=== PATIENT | female | born 1985 | race Two or more races ===

== ENCOUNTER 2016-10-04 13:18 | Emergency (ER) | payer OTHER ==
[~2016-10-04] VITALS: Ht 149.9 cm; Wt 59.0 kg
[~2016-10-04 13:18] MED LIST: FERR-26 PO; PROM25TA10 PO; SULF1TAB23 PO; SUMA50TA3 PO
[2016-10-04 13:32] VITALS: BP 151/91
[2016-10-04] MEDS ORDERED: METOCLOPRAMIDE HCL 10 MG/2 ML VIAL. IV ONE (13:45)
[2016-10-04] MEDS ORDERED: DIPHENHYDRAMINE 50 MG/ML VIAL IVP ONE (13:45)
[2016-10-04] MEDS ORDERED: IV NORMAL SALINE 500ML BAG 500 ML IV ONE (13:45)
--- NOTE | 2016-10-04 13:54 | PHYS DOC ---
Past Medical History Past Medical History: Migraines Additional Past Medical Histor: migraines Past Surgical History: Tubal ligation Alcohol Use: None Drug Use: None Adult General Chief Complaint Chief Complaint: HEADACHE HPI HPI 31-year-old female presenting the emergency department today with migraine similar to previous migraines. She complains of headache that is frontal nonradiating moderate and worse with lights and noise. She denies numbness weakness or tingling. She reports this is similar to previous headaches. Not thunderclap. Review of Systems Review of Systems Negative for fevers chills neck stiffness numbness weakness or tingling. All other review of systems is negative unless otherwise noted in history of present illness. Current Medications Current Medications Current Medications Medications (Trade) Dose Ordered Sig/Diomedes Start Time Stop Time Status Last Admin Dose Admin Diphenhydramine HCl 50 mg 50 mg 1X ONCE 10/04/16 13:45 10/04/16 13:46 DC Ketorolac Tromethamine (Toradol Im) 30 mg 1X ONCE 10/04/16 14:00 10/04/16 14:01 DC 10/04/16 13:56 30 MG Metoclopramide HCl (Reglan) 20 mg 1X ONCE 10/04/16 13:45 10/04/16 13:46 DC Sodium Chloride (Iv Sodium Chloride 0.9% 500ml Bag) 500 ml @ 500 mls/hr 1X ONCE 10/04/16 13:45 10/04/16 14:44 Allergies Allergies Allergies Coded Allergies Type Severity Reaction Last Updated Verified sulfamethoxazole Allergy Intermediate Rash 08/04/16 Yes trimethoprim Allergy Intermediate Rash 08/04/16 Yes Physical Exam Physical Exam Constitutional: Well developed, well nourished, no acute distress, non-toxic appearance. HENT: Normocephalic, atraumatic, bilateral external ears normal, oropharynx moist, no oral exudates, nose normal. [] Eyes: PERRLA, EOMI, conjunctiva normal, no discharge. Neck: Normal range of motion, no tenderness, supple, no stridor. [] Cardiovascular:Heart rate regular rhythm, no murmur [] Lungs & Thorax: Bilateral breath sounds clear to auscultation Abdomen: Bowel sounds normal, soft, no tenderness, no masses, no pulsatile masses. [] Skin: Warm, dry, no erythema, no rash. [] Back: No tenderness, no CVA tenderness. [] Extremities: No tenderness, no cyanosis, no clubbing, ROM intact, no edema. [] Neurologic: Mental status: Awake oriented and alert x3 Cranial nerves: Extraocular movements intact, eyebrows david bilaterally smile symmetric, uvula elevation, shoulder shrug intact, tongue protrusion normal DTRs: 2+ Sensation: equal and normal in all extremities Strength: 5/5 in upper and lower extremities bilaterally Psychologic: Affect normal, judgement normal, mood normal. [] Current Patient Data Vital Signs Vital Signs Date Time Temp Pulse Resp B/P Pulse Ox O2 Delivery O2 Flow Rate FiO2 10/04/16 13:32 97.8 100 16 151/91 100 97.8 Lab Values Laboratory Tests Test 10/04/16 13:40 Urine Test Negative (NEG) EKG EKG [] Radiology/Procedures Radiology/Procedures [] Course & Med Decision Making Course & Med Decision Making Pertinent Labs and Imaging studies reviewed. (See chart for details) [] 31-year-old female presenting the emergency department with headache similar to previous. Vital signs showed mild hypertension and mild tachycardia likely secondary to pain. Physical exam showed normal neurologic exam. The patient was treated for migraine headache which improved her symptoms. She was subsequently discharged home to follow up with PCP over the next 2-3 days. Dragon Disclaimer Dragon Disclaimer This electronic medical record was generated, in whole or in part, using a voice recognition dictation system. Departure Departure Impression: Primary Impression: Migraine Disposition: 01 HOME, SELF-CARE Condition: STABLE Referrals: TEJINDER ARAIZA MD (PCP) Patient Instructions: Migraine Headache Additional Instructions: Thank you for allowing us to participate in your care today. Followup with your primary care physician in 3 days if your symptoms do not improve. If you do not have a primary care provider you can ask for a list of our primary care providers. Return to the emergency department you have any new or concerning findings. This should be evaluated by the primary care physician and any necessary consulting services for continued management within a few days after discharge. Return to emergency room if you have any new or concerning symptoms including but not limited to fever, chills, nausea, vomiting, intractable pain, any new rashes, chest pain, shortness of air, uncontrolled bleeding, difficulty breathing, and/or vision loss. PINEDA CORTEZ MD Oct 04, 2016 13:54
[2016-10-04] MEDS ORDERED: KETOROLAC TROMETHAMINE 60 MG/2 ML SYRINGE. IM ONE (14:00)
[2016-10-04 14:06] LABS: NEG OBC UR NEG; POS OBC UR POS
== END 2016-10-04 14:25 | disposition home or self-care (01) ==
LOC: ER 13:18
DX: G43.909 Migraine, unspecified, not intractable, without status migrainosus (principal); Z88.1 Allergy status to other antibiotic agents
CPT/HCPCS: 81025; 96372; 99283; J1885

== ENCOUNTER 2018-01-04 17:34 | Emergency (ER) | payer OTHER | END 2018-01-04 18:02 | disposition home or self-care (01) | LOC: ER 17:34 | DX: L03.115 Cellulitis of right lower limb (principal); G43.909 Migraine, unspecified, not intractable, without status migrainosus; Z88.2 Allergy status to sulfonamides; Z88.1 Allergy status to other antibiotic agents | CPT/HCPCS: 99283 ==

== ENCOUNTER 2018-03-31 12:53 | Emergency (ER) | payer SELFPAY, OTHER | END 2018-03-31 14:02 | disposition home or self-care (01) | LOC: ER 12:53 | DX: S63.501A Unspecified sprain of right wrist, initial encounter (principal); G43.909 Migraine, unspecified, not intractable, without status migrainosus; Z98.51 Tubal ligation status; Z88.2 Allergy status to sulfonamides; Z88.5 Allergy status to narcotic agent; W18.30XA Fall on same level, unspecified, initial encounter; Y93.89 Activity, other specified; Y92.89 Other specified places as the place of occurrence of the external cause; Y99.8 Other external cause status | CPT/HCPCS: 29125; 73110; 73130; 99284 ==

== ENCOUNTER 2018-05-17 14:28 | Emergency (ER) | payer SELFPAY ==
[~2018-05-17] VITALS: Ht 149.9 cm; Wt 59.0 kg
[~2018-05-17 14:28] MED LIST changes: +CLIN300C8 PO; -FERR-26 PO; +FERR325T14 PO; +NAPR500T8 PO
[2018-05-17 15:44] VITALS: BP 124/68
[2018-05-17] MEDS ORDERED: AZIT250T PO (16:17)
[2018-05-17] MEDS ORDERED: METR500T PO (16:17)
--- NOTE | 2018-05-17 16:18 | PHYS DOC ---
Past Medical History Past Medical History: Migraines, Other Additional Past Medical Histor: migraines Past Surgical History: Tubal ligation Alcohol Use: None Drug Use: None Adult General Chief Complaint Chief Complaint: PELVIC PAIN HPI HPI Patient is a 32 year old female who presents with pelvic discharge and odor. The patient states that she has had a tubal ligation. Her last period was April 27. She states that she started to develop this odor and some brown discharge a few days ago. It has worsened. She has some mild pelvic pain associated with it. She denies any possibility of a sexually transmitted disease. She denies fever, nausea or vomiting. She denies diarrhea. Review of Systems Review of Systems Constitutional: Denies fever or chills [] Eyes: Denies change in visual acuity, redness, or eye pain [] HENT: Denies nasal congestion or sore throat [] Respiratory: Denies cough or shortness of breath [] Cardiovascular: No additional information not addressed in HPI [] GI: Denies abdominal pain, nausea, vomiting, bloody stools or diarrhea [] : See history of present illness Musculoskeletal: Denies back pain or joint pain [] Integument: Denies rash or skin lesions [] Neurologic: Denies headache, focal weakness or sensory changes [] Endocrine: Denies polyuria or polydipsia [] All other systems were reviewed and found to be within normal limits, except as documented in this note. Allergies Allergies Allergies Coded Allergies Type Severity Reaction Last Updated Verified sulfamethoxazole Allergy Intermediate Rash 08/04/16 Yes trimethoprim Allergy Intermediate Rash 08/04/16 Yes Physical Exam Physical Exam Constitutional: Well developed, well nourished, no acute distress, non-toxic appearance. [] Cardiovascular:Heart rate regular rhythm, no murmur [] Lungs & Thorax: Bilateral breath sounds clear to auscultation [] Abdomen: Bowel sounds normal, soft, no tenderness, no masses, no pulsatile masses. [] Skin: Warm, dry, no erythema, no rash. [] Back: No tenderness, no CVA tenderness. [] Extremities: No tenderness, no cyanosis, no clubbing, ROM intact, no edema. [] Neurologic: Alert and oriented X 3, normal motor function, normal sensory function, no focal deficits noted. [] Psychologic: Affect normal, judgement normal, mood normal. Pelvic Exam: Ug Designer present Abdomen: Nontender External Genitalia: Normal Skin Speculum: Normal vaginal mucosa, retained tampon noted to the vaginal canal and removed with ring forceps, brown discharge noted, foul odor noted Bimanual: No adnexal masses or tenderness, No CMT [] Current Patient Data Vital Signs Vital Signs Date Time Temp Pulse Resp B/P (MAP) Pulse Ox O2 Delivery O2 Flow Rate FiO2 05/17/18 15:44 98.4 71 16 124/68 (86) 100 Room Air 98.4 EKG EKG [] Radiology/Procedures Radiology/Procedures [] Course & Med Decision Making Course & Med Decision Making Pertinent Labs and Imaging studies reviewed. (See chart for details) []Due to the patient's pelvic tenderness she is being placed on Zithromax and Flagyl. Cultures were sent to the lab but she was notified that we will only call with positive results. She is to follow-up with gynecology if not improving or return to the emergency department if worsening. She is in agreement with this plan. Dragon Disclaimer Dragon Disclaimer This electronic medical record was generated, in whole or in part, using a voice recognition dictation system. Departure Departure Impression: Primary Impression: Retained tampon Disposition: HOME, SELF-CARE Condition: STABLE Referrals: TEJINDER ARAIZA MD (PCP) Additional Instructions: Take the medication as prescribed. Your body will continue to flush out the fluids and odor. Do not use douche or insert anything into the vaginal canal. Follow up with your primary care provider or your frame polisher for recheck in 3 days. If worsening return to the emergency department. Scripts Azithromycin (ZITHROMAX) 250 Mg Tablet 1 PKG PO UD, #1 PKG Prov: OCTAVIO PARKS TAR POT WORKER 05/17/18 Metronidazole (FLAGYL) 500 Mg Tablet 1 TAB PO BID, #14 TAB Prov: OCTAVIO PARKS APRN 05/17/18 OCTAVIO PARKS APRN May 17, 2018 16:18
[2018-05-18 15:33] LABS: GC PROBE Negative (Negative)
== END 2018-05-17 16:39 | disposition home or self-care (01) ==
LOC: ER 14:28
DX: T19.2XXA Foreign body in vulva and vagina, initial encounter (principal); X58.XXXA Exposure to other specified factors, initial encounter; Y93.89 Activity, other specified; Y92.89 Other specified places as the place of occurrence of the external cause; Y99.8 Other external cause status; G43.909 Migraine, unspecified, not intractable, without status migrainosus; Z98.51 Tubal ligation status; Z88.1 Allergy status to other antibiotic agents; Z88.2 Allergy status to sulfonamides
CPT/HCPCS: 87491; 87591; 99284; Q0111

== ENCOUNTER 2018-10-25 16:35 | Emergency (ER) | payer SELFPAY ==
[~2018-10-25] VITALS: Ht 149.9 cm; Wt 59.0 kg
[~2018-10-25 16:35] MED LIST changes: +AZIT250T PO; +METR500T PO
[2018-10-25 17:05] VITALS: BP 123/72
[2018-10-25] MEDS ORDERED: diphenhydrAMINE 50 MG/ML VIAL IVP ONE (18:00)
[2018-10-25] MEDS ORDERED: KETOROLAC 30 MG/ML VIAL. IV ONE (18:00)
[2018-10-25] MEDS ORDERED: IV NORMAL SALINE 1000ML BAG 1,000 ML IV ONE (18:00)
[2018-10-25] MEDS ORDERED: METOCLOPRAMIDE HCL 10 MG/2 ML VIAL. IV ONE (18:00)
[2018-10-25 18:03] LABS: BILIRUBIN,URINE NEGATIVE (NEG); CLARITY,URINE CLEAR; COLOR,URINE YELLOW; NITRITE,URINE NEGATIVE (NEG); PH,URINE 6.5; PROTEIN,URINE NEGATIVE (NEG-TRACE); UROBILINOGEN,URINE 0.2 mg/dL (0.2 mg/dL)
[2018-10-25 18:04] LABS: BASO % 1 % (0-3); EOS % 0 % (0-3); HEMATOCRIT 40.7 % (36.0-47.0); HEMOGLOBIN 13.4 g/dL (12.0-15.5); LYMPH # 0.7 x10^3/uL (1.0-4.8); LYMPH % 11 % (24-48); MEAN CORPUSCULAR HEMOGLOBIN 28 pg (25-35); MEAN CORPUSCULAR HGB CONC 33 g/dL (31-37); MEAN CORPUSCULAR VOLUME 85 fL (79-100); MONO # 0.3 x10^3/uL (0.0-1.1); MONO % 5 % (0-9); NEUT % 84 % (31-73); PLATELET COUNT 237 x10^3/uL (140-400); RED CELL DISTRIBUTION WIDTH 15.3 % (11.5-14.5); WHITE BLOOD COUNT 7.1 x10^3/uL (4.0-11.0)
[2018-10-25 18:12] LABS: BACTERIA,URINE 0 /HPF (0-FEW); SQUAMOUS EPITHELIAL CELL,UR OCC /LPF
[2018-10-25 18:12] LABS: CALCIUM 9.3 mg/dL (8.5-10.1); CREATININE 0.8 mg/dL (0.6-1.0); GFR 83.7; POTASSIUM 3.6 mmol/L (3.5-5.1)
[2018-10-25 18:18] LABS: ALBUMIN 4.1 g/dL (3.4-5.0); ALBUMIN/GLOBULIN RATIO 0.9 (1.0-1.7); TOTAL BILIRUBIN 0.4 mg/dL (0.2-1.0); TOTAL PROTEIN 8.5 g/dL (6.4-8.2)
--- NOTE | 2018-10-25 22:34 | PHYS DOC ---
Past Medical History Past Medical History: Migraines, Other Additional Past Medical Histor: migraines (OCTAVIO PARKS APRN) Past Surgical History: Tubal ligation (OCTAVIO PARKS APRN) Alcohol Use: None Drug Use: None (OCTAVIO PARKS APRN) Adult General Chief Complaint Chief Complaint: NAUSEA/VOMITING/DIARRHA HPI HPI Patient is a 33 year old female who presents with nausea, vomiting and a migraine headache. The patient states that she this feels similar to her normal migraines. She does not have any at home medication to take. This is not the worst headache of her life. She denies visual disturbances or paresthesias. She states that her emesis is her previously eaten food. She denies blood or mucus in her vomitus or stool. She denies fever or body aches. (OCTAVIO PARKS APRN) Review of Systems Review of Systems Constitutional: Denies fever or chills [] Eyes: Denies change in visual acuity, redness, or eye pain [] HENT: Denies nasal congestion or sore throat [] Respiratory: Denies cough or shortness of breath [] Cardiovascular: No additional information not addressed in HPI [] GI: See history of present illness : Denies dysuria or hematuria [] Musculoskeletal: Denies back pain or joint pain [] Integument: Denies rash or skin lesions [] Neurologic: See history of present illness Endocrine: Denies polyuria or polydipsia [] All other systems were reviewed and found to be within normal limits, except as documented in this note. (OCTAVIO PARKS APRN) Current Medications Current Medications Current Medications Medications (Trade) Dose Ordered Sig/Diomedes Start Time Stop Time Status Last Admin Dose Admin Diphenhydramine HCl (Benadryl) 50 mg 1X ONCE 10/25/18 18:00 2 18:01 DC 10/25/18 18:01 50 MG Ketorolac Tromethamine (Toradol 30mg Vial) 30 mg 1X ONCE 10/25/18 18:00 10/25/18 18:01 DC 10/25/18 18:01 30 MG Metoclopramide HCl (Reglan Vial) 10 mg 1X ONCE 10/25/18 18:00 10/25/18 18:01 DC 10/25/18 18:01 10 MG Sodium Chloride 1,000 ml @ 1,000 mls/hr 1X ONCE 10/25/18 18:00 10/25/18 18:36 DC 10/25/18 18:02 1,000 MLS/HR (BRAULIO DIAZ MD) Allergies Allergies Allergies Coded Allergies Type Severity Reaction Last Updated Verified sulfamethoxazole Allergy Intermediate Rash 08/04/16 Yes trimethoprim Allergy Intermediate Rash 08/04/16 Yes (BRAULIO DIAZ MD) Physical Exam Physical Exam Constitutional: Well developed, well nourished, no acute distress, non-toxic appearance. [] HENT: Normocephalic, atraumatic, bilateral external ears normal, oropharynx moist, no oral exudates, nose normal. [] Eyes: PERRLA, EOMI, conjunctiva normal, no discharge. [] Neck: Normal range of motion, no tenderness, supple, no stridor. [] Cardiovascular:Heart rate regular rhythm, no murmur [] Lungs & Thorax: Bilateral breath sounds clear to auscultation [] Abdomen: Bowel sounds normal, soft, mild epigastric tenderness, no masses, no pulsatile masses. [] Skin: Warm, dry, no erythema, no rash. [] Back: No tenderness, no CVA tenderness. [] Extremities: No tenderness, no cyanosis, no clubbing, ROM intact, no edema. [] Neurologic: Alert and oriented X 3, normal motor function, normal sensory function, no focal deficits noted, cranial nerves II through XII are grossly intact. [] Psychologic: Affect normal, judgement normal, mood normal. [] (OCTAVIO PARKS APRN) Current Patient Data Vital Signs Vital Signs Date Time Temp Pulse Resp B/P (MAP) Pulse Ox O2 Delivery O2 Flow Rate FiO2 10/25/18 17:05 97.8 84 18 123/72 (89) 99 Room Air 97.8 (BRAULIO DIAZ MD) Lab Values Laboratory Tests Test 10/25/18 17:10 10/25/18 17:17 10/25/18 18:00 Urine Color Yellow Urine Clarity Clear Urine pH 6.5 Urine Specific [place] 1.025 Urine Protein Negative mg/dL (NEG-TRACE) Urine Glucose (UA) Negative mg/dL (NEG) Urine Ketones (Stick) 15 mg/dL (NEG) Urine Blood Trace (NEG) Urine Nitrite Negative (NEG) Urine Bilirubin Negative (NEG) Urine Urobilinogen Dipstick 0.2 mg/dL (0.2 mg/dL) Urine Leukocyte Esterase Negative (NEG) Urine RBC 1-2 /HPF (0-2) Urine WBC 1-4 /HPF (0-4) Urine Squamous Epithelial Cells Occ /LPF Urine Bacteria 0 /HPF (0-FEW) Urine Mucus Slight /LPF POC Urine HCG, Qualitative Hcg negative (Negative) White Blood Count 7.1 x10^3/uL (4.0-11.0) Red Blood Count 4.80 x10^6/uL (3.50-5.40) Hemoglobin 13.4 g/dL (12.0-15.5) Hematocrit 40.7 % (36.0-47.0) Mean Corpuscular Volume 85 fL (79-100) Mean Corpuscular Hemoglobin 28 pg (25-35) Mean Corpuscular Hemoglobin Concent 33 g/dL (31-37) Red Cell Distribution Width 15.3 % (11.5-14.5) H Platelet Count 237 x10^3/uL (140-400) Neutrophils (%) (Auto) 84 % (31-73) H Lymphocytes (%) (Auto) 11 % (24-48) L Monocytes (%) (Auto) 5 % (0-9) Eosinophils (%) (Auto) 0 % (0-3) Basophils (%) (Auto) 1 % (0-3) Neutrophils # (Auto) 6.0 x10^3uL (1.8-7.7) Lymphocytes # (Auto) 0.7 x10^3/uL (1.0-4.8) L Monocytes # (Auto) 0.3 x10^3/uL (0.0-1.1) Eosinophils # (Auto) 0.0 x10^3/uL (0.0-0.7) Basophils # (Auto) 0.0 x10^3/uL (0.0-0.2) Sodium Level 139 mmol/L (136-145) Potassium Level 3.6 mmol/L (3.5-5.1) Chloride Level 101 mmol/L (98-107) Carbon Dioxide Level 27 mmol/L (21-32) Anion Gap 11 (6-14) Blood Urea Nitrogen 9 mg/dL (7-20) Creatinine 0.8 mg/dL (0.6-1.0) Estimated GFR (Cockcroft-Gault) 83.7 BUN/Creatinine Ratio 11 (6-20) Glucose Level 99 mg/dL (70-99) Calcium Level 9.3 mg/dL (8.5-10.1) Total Bilirubin 0.4 mg/dL (0.2-1.0) Aspartate Amino Transferase (AST) 34 U/L (15-37) Alanine Aminotransferase (ALT) 29 U/L (14-59) Alkaline Phosphatase 74 U/L (46-116) Total Protein 8.5 g/dL (6.4-8.2) H Albumin 4.1 g/dL (3.4-5.0) Albumin/Globulin Ratio 0.9 (1.0-1.7) L Laboratory Tests 10/25/18 18:00 Laboratory Tests 10/25/18 18:00 (BRAULIO DIAZ MD) EKG EKG [] (OCTAVIO PARKS APRN) Radiology/Procedures Radiology/Procedures [] (OCTAVIO PARKS APRN) Course & Med Decision Making Course & Med Decision Making Pertinent Labs and Imaging studies reviewed. (See chart for details) The patient was given Benadryl, Reglan and Toradol in the emergency department for her headache. She was also given a bolus of fluids. The patient received a phone call that her daughter had a medical emergency and she left AMA. (OCTAVIO PARKS APRN) Course & Med Decision Making Staff Physician Addendum: I was working in the ER during the course of this patient's visit. I was available for consultation as needed, but I was not directly involved in the care of this patient. (BRAULIO DIAZ MD) Dragon Disclaimer Dragon Disclaimer This electronic medical record was generated, in whole or in part, using a voice recognition dictation system. (OCTAVIO PARKS APRN) Departure Departure Impression: Primary Impression: Left against medical advice Disposition: 07 AGAINST MEDICAL ADVICE Condition: STABLE OCTAVIO PARKS APRN Oct 25, 2018 22:34 BRAULIO DIAZ MD Oct 26, 2018 05:25
== END 2018-10-25 18:36 | disposition left against medical advice (07) ==
LOC: ER 16:35
DX: G43.909 Migraine, unspecified, not intractable, without status migrainosus (principal); R11.2 Nausea with vomiting, unspecified; R10.13 Epigastric pain; Z98.51 Tubal ligation status; Z88.2 Allergy status to sulfonamides; Z88.1 Allergy status to other antibiotic agents
CPT/HCPCS: 36415; 80053; 81001; 81025; 85025; 96361; 96374; 96375; 99283; J1200; J1885; J2765; J7030

== ENCOUNTER 2018-11-25 11:00 | Emergency (ER) | payer SELFPAY ==
[~2018-11-25] VITALS: Ht 149.9 cm; Wt 59.0 kg
[2018-11-25 12:02] VITALS: BP 128/73
[2018-11-25] MEDS ORDERED: HYDR15CR20 TP (12:38)
--- NOTE | 2018-11-25 12:38 | PHYS DOC ---
Past Medical History Past Medical History: No Pertinent History Additional Past Medical Histor: migraines Past Surgical History: No Surgical History Alcohol Use: None Drug Use: None Adult General Chief Complaint Chief Complaint: HAND PROBLEM HPI HPI Patient is a 33 year old female who presents to the emergency department with complaints of bilateral hand itching for the last three days. Patient states that the skin around both of her thumbs is dry and cracking. She denies use of any new perfumes or lotions. She reports that she has been using a new detergent. She denies any pain at this time. Review of Systems Review of Systems Constitutional: Denies fever or chills [] Respiratory: Denies cough or shortness of breath [] Musculoskeletal: Denies joint pain [] Integument: See HPI Neurologic: Denies headache, focal weakness or sensory changes [] Allergies Allergies Allergies Coded Allergies Type Severity Reaction Last Updated Verified sulfamethoxazole Allergy Intermediate Rash 08/04/16 Yes trimethoprim Allergy Intermediate Rash 08/04/16 Yes Physical Exam Physical Exam Constitutional: Well developed, well nourished, no acute distress, non-toxic appearance. [] HENT: Normocephalic, atraumatic, bilateral external ears normal, nose normal. [] Eyes: PERRLA, conjunctiva normal, no discharge. [] Neck: Normal range of motion, no stridor. [] Cardiovascular:Heart rate regular rhythm Lungs & Thorax: respirations even and unlabored, no retractions, no distress Skin: Warm, dry; erythema and dry cracked skin consistent with contact dermatitis noted to bilateral hands concentrated around bilateral thumbs Extremities: No tenderness, no cyanosis, ROM intact, no edema. [] Neurologic: Alert and oriented X 3, no focal deficits noted. [] Psychologic: Affect normal, judgement normal, mood normal. [] Current Patient Data Vital Signs EKG EKG [] Radiology/Procedures Radiology/Procedures [] Course & Med Decision Making Course & Med Decision Making Pertinent Labs and Imaging studies reviewed. (See chart for details) [] Dragon Disclaimer Dragon Disclaimer This electronic medical record was generated, in whole or in part, using a voice recognition dictation system. Departure Departure Impression: Primary Impression: Contact dermatitis Disposition: 01 HOME, SELF-CARE Condition: STABLE Referrals: TEJINDER ARAIZA MD (PCP) Patient Instructions: Contact Dermatitis, [id number] Additional Instructions: Fill the prescription and use as directed. Recommend frequent use of moisturizing cream such as cetaphil or aquaphor. Stop using the new detergent. Follow up with your doctor if symptoms persist, return to the ER if symptoms worsen. Scripts Hydrocortisone Valerate (HYDROCORTISONE VALERATE) 15 Gm Cream..g. 1 NICHOLE TP BID for 10 Days, #30 GM 0 Refills Prov: LEILA PONCE APRN 11/25/18 Problem Qualifiers Primary Impression: Contact dermatitis Contact dermatitis type: unspecified Contact dermatitis trigger: unspecified trigger Qualified Codes: L25.9 - Unspecified contact dermatitis, unspecified cause LEILA PONCE APRN Nov 25, 2018 12:38
== END 2018-11-25 12:55 | disposition home or self-care (01) ==
LOC: ER 11:00
DX: L25.9 Unspecified contact dermatitis, unspecified cause (principal); G43.909 Migraine, unspecified, not intractable, without status migrainosus; Z88.2 Allergy status to sulfonamides; Z88.1 Allergy status to other antibiotic agents
CPT/HCPCS: 99283

== ENCOUNTER 2018-11-28 11:32 | Emergency (ER) | payer SELFPAY ==
[~2018-11-28] VITALS: Ht 149.9 cm; Wt 59.0 kg
[~2018-11-28 11:32] MED LIST changes: +HYDR15CR20 TP
[2018-11-28 11:58] VITALS: BP 143/74
[2018-11-28] MEDS ORDERED: HYDR-3164 PO (12:18)
[2018-11-28] MEDS ORDERED: PRED50TA PO (12:18)
[2018-11-28] MEDS ORDERED: CEPH500T PO (12:18)
--- NOTE | 2018-11-28 12:18 | PHYS DOC ---
Past Medical History Past Medical History: No Pertinent History Additional Past Medical Histor: migraines Past Surgical History: No Surgical History Alcohol Use: None Drug Use: None Adult General Chief Complaint Chief Complaint: SKIN PROBLEM HPI HPI Patient is a 33 year old female with no significant medical history who presents to the ED today complaining of moderate bilateral foot blisters on bilateral hands and feet that began last week. Patient denies any fever. Denies any cough or congestion. Denies any bleeding home having similar symptoms. She states she was seen in the ED last week and was discharged on hydrocortisone cream which is not helping with her pain or symptoms. Review of Systems Review of Systems Constitutional: Denies fever or chills [] Eyes: Denies change in visual acuity, redness, or eye pain [] HENT: Denies nasal congestion or sore throat [] Respiratory: Denies cough or shortness of breath [] Cardiovascular: No additional information not addressed in HPI [] GI: Denies abdominal pain, nausea, vomiting, bloody stools or diarrhea [] : Denies dysuria or hematuria [] Musculoskeletal: Denies back pain or joint pain [] Integument: Reports painful blisters to bilateral hand and feet Neurologic: Denies headache, focal weakness or sensory changes [] All other systems were reviewed and found to be within normal limits, except as documented in this note. Current Medications Current Medications Current Medications Medications (Trade) Dose Ordered Sig/Diomedes Start Time Stop Time Status Last Admin Dose Admin Acetaminophen/ Hydrocodone Bitart (Lortab 5/325) 2 tab 1X ONCE 11/28/18 12:30 11/28/18 12:31 Diphtheria/ Tetanus/Acell Pertussis (Boostrix) 0.5 ml ONCE ONCE 11/28/18 12:30 11/28/18 12:31 Allergies Allergies Allergies Coded Allergies Type Severity Reaction Last Updated Verified sulfamethoxazole Allergy Intermediate Rash 08/04/16 Yes trimethoprim Allergy Intermediate Rash 08/04/16 Yes Physical Exam Physical Exam Constitutional: Well developed, well nourished, no acute distress, non-toxic appearance. [] HENT: Normocephalic, atraumatic, bilateral external ears normal, oropharynx moist, no oral exudates, nose normal. [] Eyes: PERRLA, EOMI, conjunctiva normal, no discharge. [] Neck: Normal range of motion, no tenderness, supple, no stridor. [] Cardiovascular:Heart rate regular rhythm, no murmur [] Lungs & Thorax: Bilateral breath sounds clear to auscultation [] Abdomen: Bowel sounds normal, soft, no tenderness, no masses, no pulsatile masses. [] Skin: Palms of bilateral hands with moderate blisters, the skin on the fingers is dry and peeling off on the fingers, similar blisters noted on the feet. This looks like hand-foot mouth. No oral lesions are noted, some blisters are pussy. Back: No tenderness, no CVA tenderness. [] Extremities: No tenderness, no cyanosis, no clubbing, ROM intact, no edema. [] Neurologic: Alert and oriented X 3, normal motor function, normal sensory function, no focal deficits noted. [] Psychologic: Affect normal, judgement normal, mood normal. [] Current Patient Data Vital Signs Vital Signs Date Time Temp Pulse Resp B/P (MAP) Pulse Ox O2 Delivery O2 Flow Rate FiO2 11/28/18 11:58 98.2 90 16 143/74 (97) 99 Room Air 98.2 EKG EKG [] Radiology/Procedures Radiology/Procedures [] Course & Med Decision Making Course & Med Decision Making Pertinent and Imaging studies reviewed. (See chart for details) This is a 33-year-old female patient presenting to the ED today with blisters on the palms of the hand and feet. No intraoral lesions, infection noted on some of the lesions. Tetanus updated. D/C [place] and Cephalexin. F/u with PCP next week Dragon Disclaimer Dragon Disclaimer This electronic medical record was generated, in whole or in part, using a voice recognition dictation system. Departure Departure Impression: Primary Impression: Hand, foot and mouth disease Disposition: 01 HOME, SELF-CARE Condition: STABLE Referrals: TEJINDER ARAIZA MD (PCP) follow up next week Patient Instructions: Hand, Foot, and Mouth Disease Additional Instructions: You were seen for infected hand foot mouth disease. This is a viral illness, it typically runs its own course take the prescribed medications as ordered. Follow -up with your own doctor in the course of this week or next week. Scripts Prednisone (PREDNISONE) 50 Mg Tablet 1 TAB PO DAILY, #5 TAB Prov: CHANDRIKA BURK APRN 11/28/18 Cephalexin (CEPHALEXIN) 500 Mg Tablet 1 TAB PO QID, #40 TAB Prov: MUTUNGA,CHANDRIKA ELECTRIC DEICER ASSEMBLER 11/28/18 Hydrocodone/Apap 5-325 (NORCO 5-325 TABLET) 1 Each Tablet 1 TAB PO Q4-6HRS, #25 TAB Prov: CHANDRIKA BURK APRN 11/28/18 CHANDRIKA BURK APRN Nov 28, 2018 12:18
[2018-11-28] MEDS ORDERED: DIPHTH,PERTUSS(ACELL),TET TOX 0.5 ML DISP.SYRIN. VAX IM ONE (12:30)
[2018-11-28] MEDS ORDERED: HYDROcodone/APAP 5/325MG 1 TAB TABLET PO ONE (12:30)
== END 2018-11-28 12:37 | disposition home or self-care (01) ==
LOC: ER 11:32
DX: S90.822A Blister (nonthermal), left foot, initial encounter (principal); S90.821A Blister (nonthermal), right foot, initial encounter; B08.4 Enteroviral vesicular stomatitis with exanthem; G43.909 Migraine, unspecified, not intractable, without status migrainosus; Z88.2 Allergy status to sulfonamides; Z88.1 Allergy status to other antibiotic agents; X58.XXXA Exposure to other specified factors, initial encounter; Y93.89 Activity, other specified; Y92.89 Other specified places as the place of occurrence of the external cause; Y99.8 Other external cause status
CPT/HCPCS: 90471; 90715; 99283

== ENCOUNTER 2018-12-11 18:03 | Emergency (ER) | payer SELFPAY ==
[~2018-12-11] VITALS: Ht 149.9 cm; Wt 59.0 kg
[~2018-12-11 18:03] MED LIST changes: +CEPH500T PO; +HYDR-3164 PO; +PRED50TA PO
[2018-12-11 18:15] VITALS: BP 143/96
[2018-12-11] MEDS ORDERED: methylPREDNISolone SOD SUCC PF 125 MG/2 ML VIAL. IM ONE (18:30)
[2018-12-11] MEDS ORDERED: DICL50TA4 PO (18:37)
[2018-12-11] MEDS ORDERED: CEPH-264 PO (18:37)
--- NOTE | 2018-12-11 18:37 | PHYS DOC ---
Past Medical History Past Medical History: No Pertinent History Additional Past Medical Histor: migraines Past Surgical History: No Surgical History Alcohol Use: None Drug Use: None Adult General Chief Complaint Chief Complaint: SKIN PROBLEM HPI HPI Patient is a 33 year old female presents for evaluation of painful rash on the palms of both of her hands. She reports is now having some symptoms on the tops of both of her feet. She was seen in this emergency room 2 weeks ago and has completed prednisone without relief. She has an appointment for new patient appointment next Wednesday that reports the symptoms are so painful she presented to the emergency room for another evaluation. She reports initially the rash starts out appearing as blisters on her hands and feet, they're small and itchy and then become painful. There are some that are oozing red she has not had any fevers. She denies any genital lesions. Review of Systems Review of Systems Constitutional: Denies fever or chills [] Eyes: Denies change in visual acuity, redness, or eye pain [] HENT: Denies nasal congestion or sore throat [] Respiratory: Denies cough or shortness of breath [] Cardiovascular: No additional information not addressed in HPI [] GI: Denies abdominal pain, nausea, vomiting, bloody stools or diarrhea [] : Denies dysuria or hematuria [] Musculoskeletal: Denies back pain or joint pain [] Integument: Rash to hands and feet Neurologic: Denies headache, focal weakness or sensory changes [] Endocrine: Denies polyuria or polydipsia [] All other systems were reviewed and found to be within normal limits, except as documented in this note. Current Medications Current Medications Current Medications Medications (Trade) Dose Ordered Sig/Diomedes Start Time Stop Time Status Last Admin Dose Admin Methylprednisolone Sodium Succinate (SOLU-Medrol 125MG VIAL) 125 mg 1X ONCE 12/11/18 18:30 12/11/18 18:31 DC 12/11/18 18:39 125 MG Allergies Allergies Allergies Coded Allergies Type Severity Reaction Last Updated Verified sulfamethoxazole Allergy Intermediate Rash 08/04/16 Yes trimethoprim Allergy Intermediate Rash 08/04/16 Yes Physical Exam Physical Exam Constitutional: Well developed, well nourished, no acute distress, non-toxic appearance. [] HENT: Normocephalic, atraumatic, bilateral external ears normal, oropharynx moist, no oral exudates, nose normal. [] Eyes: PERRLA, EOMI, conjunctiva normal, no discharge. [] Neck: Normal range of motion, no tenderness, supple, no stridor. [] Skin: Scaly erythematous rash on bilateral palms as well as around the fingers and dorsal aspect of both hands. Several of these areas on the palms are weeping serosanguineous drainage. Bilateral dorsal feet and toes also have similar appearance, there is some blister appearance to the rash of the left foot.[] Extremities: No tenderness, no cyanosis, no clubbing, ROM intact, no edema. [] Neurologic: Alert and oriented X 3, normal motor function, normal sensory function, no focal deficits noted. [] Psychologic: Affect normal, judgement normal, mood normal. [] Current Patient Data Vital Signs Vital Signs Date Time Temp Pulse Resp B/P (MAP) Pulse Ox O2 Delivery O2 Flow Rate FiO2 12/11/18 18:15 98.2 95 18 143/96 (112) 98 Room Air 98.2 EKG EKG [] Radiology/Procedures Radiology/Procedures [] Course & Med Decision Making Course & Med Decision Making Pertinent Labs and Imaging studies reviewed. (See chart for details) [Appearance of rash is similar to dyshidrotic eczema, discussed with patient would need to have dermatology follow-up for diagnosis of this rash. I am concerned that there are some areas that may be infected, have placed patient on antibiotics, given IM Solu-Medrol, and referred for dermatology follow-up. Vital signs are stable, she is nontoxic in appearance.] Dragon Disclaimer Dragon Disclaimer This electronic medical record was generated, in whole or in part, using a voice recognition dictation system. Departure Departure Impression: Primary Impression: Rash Disposition: 01 HOME, SELF-CARE Condition: STABLE Referrals: TEJINDER ARAIZA MD (PCP) Patient Instructions: Rash Scripts Diclofenac Sodium (DICLOFENAC SODIUM) 50 Mg Tablet.dr 50 MG PO BID PRN for PAIN for 10 Days, #20 TAB Prov: JOSE PEARSON APRN 12/11/18 Cephalexin (KEFLEX) 500 Mg Capsule 500 MG PO QID for 10 Days, #40 CAP Prov: JOSE PEARSON APRN 12/11/18 JOSE PEARSON APRN Dec 11, 2018 18:37
== END 2018-12-11 18:48 | disposition home or self-care (01) ==
LOC: ER 18:03
DX: R21 Rash and other nonspecific skin eruption (principal); G43.909 Migraine, unspecified, not intractable, without status migrainosus; Z88.1 Allergy status to other antibiotic agents; Z88.2 Allergy status to sulfonamides
CPT/HCPCS: 96372; 99283; J2930

== ENCOUNTER 2019-02-03 02:46 | Emergency (ER) | payer SELFPAY ==
[~2019-02-03] VITALS: Ht 149.9 cm; Wt 59.0 kg
[~2019-02-03 02:46] MED LIST changes: +CEPH-264 PO; +DICL50TA4 PO
[2019-02-03 02:52] VITALS: BP 146/80
[2019-02-03] MEDS ORDERED: LIDOCAINE 1%/EPI 1:100,000 20 ML VIAL. ONE (03:08)
[2019-02-03] MEDS ORDERED: BUPIVAC MPF-EPI 0.5%-1:200000 30 ML VIAL. INJ ONE (03:15)
[2019-02-03] MEDS ORDERED: DEXAMETHASONE 4 MG TABLET PO ONE (03:15)
[2019-02-03] MEDS ORDERED: AMOXICILLIN/K CLAV 875/125MG TABLET. PO ONE (03:15)
[2019-02-03] MEDS ORDERED: PRED20TA PO (03:17)
[2019-02-03] MEDS ORDERED: CHLO15MO2 PO (03:17)
[2019-02-03] MEDS ORDERED: AMOX1TAB61 PO (03:17)
[2019-02-03] MEDS ORDERED: HYDR-3164 PO (03:17)
--- NOTE | 2019-02-03 03:17 | PHYS DOC ---
Past Medical History Past Medical History: Migraines Past Surgical History: Tubal ligation Additional Information: Nonsmoker Alcohol Use: None Drug Use: None Adult General Chief Complaint Chief Complaint: DENTAL PROBLEM HPI HPI 33-year-old female presents with 2-3 day history of dental pain to left mandibular molar. Patient reports patient is aware of missing part of that molar. Patient reports she has an appointment with her dentist on Wednesday. Patient reports pain worse tonight and therefore presents to the ER for evaluation. Patient did take ibuprofen at 2200. Denies fever or chills. Denies . Patient has history of tubal ligation. Review of Systems Review of Systems Constitutional: Denies fever or chills HENT: Denies nasal congestion or sore throat; reports toothache Integument: Denies rash or skin lesions Neurologic: Denies headache, focal weakness or sensory changes Complete systems were reviewed and found to be within normal limits, except as documented in this note. Current Medications Current Medications Current Medications Medications (Trade) Dose Ordered Sig/Diomedes Start Time Stop Time Status Last Admin Dose Admin Amoxicillin/ Clavulanate Potassium (Augmentin 875/ 125mg) 1 tab 1X ONCE 02/03/19 03:15 02/03/19 03:16 DC 02/03/19 03:17 1 TAB Bupivacaine HCl/ Epinephrine Bitart (Sensorcain-Mpf Epi 0.5%-1:[id number]) 30 ml 1X ONCE 02/03/19 03:15 02/03/19 03:16 DC 02/03/19 03:18 30 ML Dexamethasone (Decadron) 10 mg 1X ONCE 02/03/19 03:15 02/03/19 03:16 DC 02/03/19 03:17 10 MG Lidocaine/ Epinephrine (LIDOCAINE 1%-EPI 1:100,000 Multi-Dose) 20 ml STK-MED ONCE 02/03/19 03:08 02/03/19 03:09 DC Allergies Allergies Allergies Coded Allergies Type Severity Reaction Last Updated Verified sulfamethoxazole Allergy Intermediate Rash 08/04/16 Yes trimethoprim Allergy Intermediate Rash 08/04/16 Yes Physical Exam Physical Exam Constitutional: Well developed, well nourished, no acute distress, non-toxic appearance HENT: Normocephalic, atraumatic, oropharynx moist; poor dentition throughout, tenderness to palpation of left mandibular second molar with dental mario Eyes: Conjunctiva normal, no discharge Neck: Normal range of motion, no tenderness, supple, no lymphadenopathy Lungs & Thorax: No respiratory distress; atraumatic Skin: Warm, dry, no erythema, no rash Neurologic: Alert and oriented X 3, no focal deficits noted Psychologic: Affect normal, judgement normal, mood normal Current Patient Data Vital Signs Vital Signs Date Time Temp Pulse Resp B/P (MAP) Pulse Ox O2 Delivery O2 Flow Rate FiO2 02/03/19 02:52 98.8 97 16 146/80 (102) 98 Room Air 98.8 EKG EKG [] Radiology/Procedures Radiology/Procedures [] Course & Med Decision Making Course & Med Decision Making Patient presents with toothache to left second mandibular molar due to poor dentition. Empiric antibiotic initiated. Pain addressed with oral steroid and dental block. Patient with interval improvement of symptoms. Patient stable for discharge with outpatient follow-up with dentist. Discussed findings and plan with patient and family, who acknowledge understanding and agreement. Dragon Disclaimer Dragon Disclaimer This electronic medical record was generated, in whole or in part, using a voice recognition dictation system. Additional Procedures Progress Dental block: Verbal consent obtained. Time out performed. Hand hygiene utilized. Dental block performed due to dentalgia from left mandibular 2nd molar. Anesthesia obtained via left inferior alveolar block with a 25-gauge hypodermic needle with (3) mL's of bupivacaine 0.5% with epinephrine. Patient tolerated procedure well and without difficulty. Departure Departure Impression: Primary Impression: Toothache Additional Impression: Dental caries Disposition: 01 HOME, SELF-CARE Condition: STABLE Referrals: TEJINDER ARAIZA MD (PCP) Patient Instructions: Dental Caries, Toothache-Brief Scripts Hydrocodone/Apap 5-325 (NORCO 5-325 TABLET) 1 Each Tablet 0.5 TAB PO PRN Q6HRS PRN for PAIN, #10 TAB 0 Refills Prov: SILVIA DIAZ DO 02/03/19 Amoxicillin/Potassium Clav (AUGMENTIN 875-125 TABLET) 1 Each Tablet 1 TAB PO BID, #14 TAB Prov: SILVIA DIAZ DO 02/03/19 Chlorhexidine Gluconate (PERIDEX) 15 Ml Mouthwash 15 ML PO BID, #473 ML Prov: SILVIA DIAZ DO 02/03/19 Prednisone (PREDNISONE) 20 Mg Tablet 2 TAB PO DAILY, #8 TAB Start this prescription tomorrow, 02/04/19 Prov: SILVIA DIAZ DO 02/03/19 Problem Qualifiers SILVIA DIAZ DO February 03, 2019 03:17
== END 2019-02-03 03:34 | disposition home or self-care (01) ==
LOC: ER 02:46
DX: K02.9 Dental caries, unspecified (principal); G43.909 Migraine, unspecified, not intractable, without status migrainosus; Z98.51 Tubal ligation status; Z88.1 Allergy status to other antibiotic agents; Z88.2 Allergy status to sulfonamides
CPT/HCPCS: 64400; 99284; J3490; J8540

== ENCOUNTER 2019-06-15 09:34 | Emergency (ER) | payer SELFPAY ==
[~2019-06-15] VITALS: Ht 160 cm; Wt 59.0 kg
[~2019-06-15 09:34] MED LIST changes: +AMOX1TAB61 PO; +CHLO15MO2 PO; +PRED20TA PO
[2019-06-15 09:41] VITALS: BP 113/58
--- NOTE | 2019-06-15 09:59 | PHYS DOC ---
Past Medical History Past Medical History: Migraines Past Surgical History: Tubal ligation Alcohol Use: None Drug Use: None Adult General Chief Complaint Chief Complaint: ABDOMINAL PAIN HPI HPI Patient is a 34 year old female who presents to the ER via EMS with complaints of pelvic pain and foul vaginal odor. She denies any irregular vaginal discharge. Pt states that the pain began at 0100 she started her m enstrual cycle later this morning. She denies any nausea, vomiting, diarrhea, dysuria, hematuria, increased urinary frequency, or foul smelling urine. She currently rates her pain as an 8/10 on the pain scale. She describes the pain as intermittent, sharp, stabbing. She denies any alleviating factors. Review of Systems Review of Systems Constitutional: Denies fever or chills [] Eyes: Denies change in visual acuity, redness, or eye pain [] HENT: Denies nasal congestion or sore throat [] Respiratory: Denies cough or shortness of breath [] Cardiovascular: No additional information not addressed in HPI [] GI: Denies nausea, vomiting, bloody stools or diarrhea [] : Denies dysuria or hematuria; see HPI [] Musculoskeletal: Denies back pain or joint pain [] Integument: Denies rash or skin lesions [] Neurologic: Denies headache Complete systems were reviewed and found to be within normal limits, except as documented in this note. Current Medications Current Medications Current Medications Medications (Trade) Dose Ordered Sig/Diomedes Start Time Stop Time Status Last Admin Dose Admin Azithromycin (Zithromax) 1,000 mg 1X ONCE 06/15/19 10:45 06/15/19 10:46 DC 06/15/19 11:03 1,000 MG Ceftriaxone Sodium (Rocephin Im) 250 mg 1X ONCE 06/15/19 10:45 06/15/19 10:46 DC 06/15/19 11:03 250 MG Ketorolac Tromethamine (Toradol 15mg Vial) 15 mg 1X ONCE 06/15/19 10:45 06/15/19 10:46 DC 06/15/19 11:01 15 MG Lidocaine HCl (Xylocaine-Mpf 1% 2ml Vial) 2 ml STK-MED ONCE 06/15/19 10:57 06/15/19 10:58 DC Sodium Chloride 1,000 ml @ 1,000 mls/hr 1X ONCE 06/15/19 10:45 06/15/19 11:44 DC 06/15/19 11:01 1,000 MLS/HR Allergies Allergies Allergies Coded Allergies Type Severity Reaction Last Updated Verified sulfamethoxazole Allergy Intermediate Rash 08/04/16 Yes trimethoprim Allergy Intermediate Rash 08/04/16 Yes Physical Exam Physical Exam Constitutional: Well developed, well nourished, no acute distress, non-toxic appearance. [] HENT: Normocephalic, atraumatic, bilateral external ears normal, nose normal. [] Eyes: PERRLA, EOMI, conjunctiva normal, no discharge. [] Neck: Normal range of motion, no stridor. 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 [] Back: No CVA tenderness. [] Extremities: No cyanosis, no clubbing, ROM intact, no edema. [] Neurologic: Alert and oriented X 3, no focal deficits noted. [] Psychologic: Affect normal, judgement normal, mood normal. [] Current Patient Data Lab Values Laboratory Tests Test 06/15/19 09:41 06/15/19 09:48 White Blood Count 6.2 x10^3/uL (4.0-11.0) Red Blood Count 4.58 x10^6/uL (3.50-5.40) Hemoglobin 12.8 g/dL (12.0-15.5) Hematocrit 38.2 % (36.0-47.0) Mean Corpuscular Volume 83 fL (79-100) Mean Corpuscular Hemoglobin 28 pg (25-35) Mean Corpuscular Hemoglobin Concent 34 g/dL (31-37) Red Cell Distribution Width 14.4 % (11.5-14.5) Platelet Count 237 x10^3/uL (140-400) Neutrophils (%) (Auto) 93 % (31-73) H Lymphocytes (%) (Auto) 4 % (24-48) L Monocytes (%) (Auto) 3 % (0-9) Eosinophils (%) (Auto) 0 % (0-3) Basophils (%) (Auto) 0 % (0-3) Neutrophils # (Auto) 5.8 x10^3/uL (1.8-7.7) Lymphocytes # (Auto) 0.2 x10^3/uL (1.0-4.8) L Monocytes # (Auto) 0.2 x10^3/uL (0.0-1.1) Eosinophils # (Auto) 0.0 x10^3/uL (0.0-0.7) Basophils # (Auto) 0.0 x10^3/uL (0.0-0.2) Segmented Neutrophils % 90 % (35-66) H Band Neutrophils % 3 % (0-9) Lymphocytes % 5 % (24-48) L Monocytes % 1 % (0-10) Basophils % 1 % (0-3) Platelet Estimate Adequate (ADEQUATE) Sodium Level 137 mmol/L (136-145) Potassium Level 3.4 mmol/L (3.5-5.1) L Chloride Level 101 mmol/L (98-107) Carbon Dioxide Level 24 mmol/L (21-32) Anion Gap 12 (6-14) Blood Urea Nitrogen 13 mg/dL (7-20) Creatinine 0.7 mg/dL (0.6-1.0) Estimated GFR (Cockcroft-Gault) 97.0 BUN/Creatinine Ratio 19 (6-20) Glucose Level 104 mg/dL (70-99) H Calcium Level 9.3 mg/dL (8.5-10.1) Total Bilirubin 0.6 mg/dL (0.2-1.0) Aspartate Amino Transferase (AST) 22 U/L (15-37) Alanine Aminotransferase (ALT) 18 U/L (14-59) Alkaline Phosphatase 61 U/L (46-116) Total Protein 7.9 g/dL (6.4-8.2) Albumin 4.0 g/dL (3.4-5.0) Albumin/Globulin Ratio 1.0 (1.0-1.7) Urine Collection Type Unknown Urine Color Yellow Urine Clarity Clear Urine pH 6.0 Urine Specific [place] >=1.030 Urine Protein Negative mg/dL (NEG-TRACE) Urine Glucose (UA) Negative mg/dL (NEG) Urine Ketones (Stick) 40 mg/dL (NEG) Urine Blood Negative (NEG) Urine Nitrite Negative (NEG) Urine Bilirubin Negative (NEG) Urine Urobilinogen Dipstick 0.2 mg/dL (0.2 mg/dL) Urine Leukocyte Esterase Moderate (NEG) Urine RBC 0 /HPF (0-2) Urine WBC 11-20 /HPF (0-4) Urine Squamous Epithelial Cells Mod /LPF Urine Bacteria Few /HPF (0-FEW) Urine Mucus Marked /LPF Laboratory Tests 06/15/19 09:41 Laboratory Tests 06/15/19 09:41 Microbiology 06/15/19 Wet Prep - Final, Complete EKG EKG [] Radiology/Procedures Radiology/Procedures PROCEDURE: PELVIS W/TV Pelvic ultrasound HISTORY: Pelvic pain Endovaginal scan: Uterus and ovaries are not well seen. Transvaginal scan: Uterus measures 7.4 x 4.6 x 5.3 cm. Endometrium measures 11 mm thickness with a uniformly hyperechoic appearance. Right ovary measures 3.7 cm with numerous small follicles and intact blood flow. Left ovary measures 4.0 cm with intact blood flow. No significant free fluid. IMPRESSION: No significant sonographic abnormality.[] Course & Med Decision Making Course & Med Decision Making Pertinent Labs and Imaging studies reviewed. (See chart for details) dx: pelvic pain, suspected sexually transmitted infection wet mount normal, UA 5-10 WBCs with moderate squamous cells, pt asymptomatic Patient was treated prophylactically with 250 mg of IM Rocephin, and 1 g of PO Zithromax. Patient was instructed to avoid having intercourse until the results of gonorrhea and chlamydia testing are available, patient was notified that these results would not be available for 48 hours. If one or both of these tests is positive, patient needs to refrain from intercourse for approximately 1 week following the treatment of any current partners. patient verbalized an understanding of home care, medications, follow-up, and return to ED instructions and was in agreement with the plan of care. [] Dragon Disclaimer Dragon Disclaimer This electronic medical record was generated, in whole or in part, using a voice recognition dictation system. Departure Departure Impression: Primary Impression: Pelvic pain Additional Impressions: Vaginal odor Concern about sexually transmitted disease in female without diagnosis Disposition: 01 HOME, SELF-CARE Condition: STABLE Referrals: TEJINDER ARAIZA MD (PCP) USMAN OLIVA MD Patient Instructions: Pelvic Pain, Female, [id number], Sexually Transmitted Disease, [id number] Additional Instructions: Fill the prescription and use as directed. Recommend that you go to your local health department for comprehensive sexually transmitted disease testing. You have been treated for a suspected gonorrhea and chlamydia. Avoid having intercourse until the results of gonorrhea and chlamydia testing are available, these results will not be available for 48 hours. If one or both of these tests is positive, you need to refrain from intercourse for approximately 1 week following the treatment of any current partners. Follow-up with your primary care doctor or Dr. Oliva if symptoms persist, return to ER if symptoms worsen. Problem Qualifiers LEILA PONCE APRN Jun 15, 2019 09:59
[2019-06-15 10:14] LABS: BASO % 0 % (0-3); EOS % 0 % (0-3); HEMATOCRIT 38.2 % (36.0-47.0); HEMOGLOBIN 12.8 g/dL (12.0-15.5); LYMPH # 0.2 x10^3/uL (1.0-4.8); LYMPH % 4 % (24-48); MEAN CORPUSCULAR HEMOGLOBIN 28 pg (25-35); MEAN CORPUSCULAR HGB CONC 34 g/dL (31-37); MEAN CORPUSCULAR VOLUME 83 fL (79-100); MONO # 0.2 x10^3/uL (0.0-1.1); MONO % 3 % (0-9); NEUT # 5.8 x10^3/uL (1.8-7.7); NEUT % 93 % (31-73); PLATELET COUNT 237 x10^3/uL (140-400); RED BLOOD COUNT 4.58 x10^6/uL (3.50-5.40); RED CELL DISTRIBUTION WIDTH 14.4 % (11.5-14.5); WHITE BLOOD COUNT 6.2 x10^3/uL (4.0-11.0)
[2019-06-15 10:17] LABS: BILIRUBIN,URINE NEGATIVE (NEG); CLARITY,URINE CLEAR; COLOR,URINE YELLOW; NITRITE,URINE NEGATIVE (NEG); PROTEIN,URINE NEGATIVE (NEG-TRACE); UROBILINOGEN,URINE 0.2 mg/dL (0.2 mg/dL)
[2019-06-15 10:26] LABS: CALCIUM 9.3 mg/dL (8.5-10.1); CREATININE 0.7 mg/dL (0.6-1.0); POTASSIUM 3.4 mmol/L (3.5-5.1)
[2019-06-15 10:32] LABS: TOTAL BILIRUBIN 0.6 mg/dL (0.2-1.0); TOTAL PROTEIN 7.9 g/dL (6.4-8.2)
[2019-06-15 10:35] LABS: BACTERIA,URINE FEW /HPF (0-FEW); RBC,URINE 0 /HPF (0-2)
[2019-06-15 10:36] LABS: SQUAMOUS EPITHELIAL CELL,UR MOD /LPF
[2019-06-15] MEDS ORDERED: cefTRIAXone IM 250 MG VIAL IM ONE (10:45)
[2019-06-15] MEDS ORDERED: AZITHROMYCIN 250 MG TABLET. PO ONE (10:45)
[2019-06-15] MEDS ORDERED: KETOROLAC 15 MG/ML VIAL. IV ONE (10:45)
[2019-06-15] MEDS ORDERED: IV NORMAL SALINE 1000ML BAG 1,000 ML IV ONE (10:45)
[2019-06-15] MEDS ORDERED: LIDOCAINE 1% PF 2 ML VIAL. ONE (10:57)
--- NOTE | 2019-06-15 11:22 | RAD ---
Pelvic ultrasound HISTORY: Pelvic pain Endovaginal scan: Uterus and ovaries are not well seen. Transvaginal scan: Uterus measures 7.4 x 4.6 x 5.3 cm. Endometrium measures 11 mm thickness with a uniformly hyperechoic appearance. Right ovary measures 3.7 cm with numerous small follicles and intact blood flow. Left ovary measures 4.0 cm with intact blood flow. No significant free fluid. IMPRESSION: No significant sonographic abnormality. Electronically signed by: Gene Patricia MD (06/15/2019 11:19 AM) [id number]
[2019-06-15 11:45] LABS: % BANDS 3 % (0-9); % BASOS 1 % (0-3); % LYMPHS 5 % (24-48); % MONOS 1 % (0-10); % SEGS 90 % (35-66); PLT ESTIMATE ADEQUATE (ADEQUATE)
[2019-06-16 18:09] LABS: GC PROBE Negative (Negative)
== END 2019-06-15 12:30 | disposition home or self-care (01) ==
LOC: ER 09:34
DX: R10.2 Pelvic and perineal pain (principal); Z20.2 Contact with and (suspected) exposure to infections with a predominantly sexual mode of transmission; N89.8 Other specified noninflammatory disorders of vagina; R11.2 Nausea with vomiting, unspecified; G43.909 Migraine, unspecified, not intractable, without status migrainosus; Z98.51 Tubal ligation status; Z88.1 Allergy status to other antibiotic agents; Z88.2 Allergy status to sulfonamides
CPT/HCPCS: 36415; 76830; 76856; 80053; 81001; 85007; 85025; 87086; 87491; 87591; 96361; 96372; 96374; 99285; J0696; J1885; J7030; Q0111; Q0144

== ENCOUNTER 2019-08-28 15:52 | Emergency (ER) | payer SELFPAY ==
[~2019-08-28] VITALS: Ht 149.9 cm; Wt 54.4 kg
[2019-08-28 16:15] VITALS: BP 114/73
[2019-08-28 16:50] LABS: BILIRUBIN,URINE NEGATIVE (NEG); CLARITY,URINE CLOUDY; COLOR,URINE YELLOW; NITRITE,URINE NEGATIVE (NEG); PH,URINE 6.5; PROTEIN,URINE NEGATIVE (NEG-TRACE); UROBILINOGEN,URINE 0.2 mg/dL (0.2 mg/dL)
[2019-08-28 17:07] LABS: SQUAMOUS EPITHELIAL CELL,UR MOD /LPF
[2019-08-28 17:08] LABS: BACTERIA,URINE FEW /HPF (0-FEW); TRICHOMONAS,URINE PRESENT
[2019-08-28] MEDS ORDERED: cefTRIAXone IM 250 MG VIAL IM ONE (17:30)
[2019-08-28] MEDS ORDERED: metroNIDAZOLE 500 MG TABLET PO ONE (17:30)
[2019-08-28] MEDS ORDERED: AZITHROMYCIN 250 MG TABLET. PO ONE (17:30)
[2019-08-28] MEDS ORDERED: TRIA15OI TP (17:52)
[2019-08-28] MEDS ORDERED: CEPH500T PO (17:52)
--- NOTE | 2019-08-28 17:53 | PHYS DOC ---
Past Medical History Past Medical History: Migraines Additional Past Medical Histor: migraines Past Surgical History: Tubal ligation Alcohol Use: None Drug Use: None Adult General Chief Complaint Chief Complaint: SKIN PROBLEM HPI HPI Patient is a 34 year old female who presents to the ED today complaining of a chronic rash to bilateral hands that she's had for months. Patient states she is unable to follow-up with a deck steward because she does not have insurance. She is also complaining of dysuria and is concerned she has a UTI. Review of Systems Review of Systems Constitutional: Denies fever or chills [] Eyes: Denies change in visual acuity, redness, or eye pain [] HENT: Denies nasal congestion or sore throat [] Respiratory: Denies cough or shortness of breath [] Cardiovascular: No additional information not addressed in HPI [] GI: Denies abdominal pain, nausea, vomiting, bloody stools or diarrhea [] : Reports dysuria, denies hematuria [] Musculoskeletal: Denies back pain or joint pain [] Integument: Reports chronic rash to bilateral hands Neurologic: Denies headache, focal weakness or sensory changes [] All other systems were reviewed and found to be within normal limits, except as documented in this note. Current Medications Current Medications Current Medications Medications (Trade) Dose Ordered Sig/Diomedes Start Time Stop Time Status Last Admin Dose Admin Azithromycin (Zithromax) 1,000 mg 1X ONCE 08/28/19 17:30 08/28/19 17:31 DC 08/28/19 17:44 1,000 MG Ceftriaxone Sodium (Rocephin Im) 250 mg 1X ONCE 08/28/19 17:30 08/28/19 17:31 DC 08/28/19 17:45 250 MG Metronidazole (Flagyl) 2,000 mg 1X ONCE 08/28/19 17:30 08/28/19 17:31 DC 08/28/19 17:44 2,000 MG Allergies Allergies Allergies Coded Allergies Type Severity Reaction Last Updated Verified sulfamethoxazole Allergy Intermediate Rash 08/04/16 Yes trimethoprim Allergy Intermediate Rash 08/04/16 Yes Physical Exam Physical Exam Constitutional: Well developed, well nourished, no acute distress, non-toxic appearance. [] HENT: Normocephalic, atraumatic, bilateral external ears normal, oropharynx moist, no oral exudates, nose normal. [] Eyes: PERRLA, EOMI, conjunctiva normal, no discharge. [] Neck: Normal range of motion, no tenderness, supple, no stridor. [] Cardiovascular:Heart rate regular rhythm, no murmur [] Lungs & Thorax: Bilateral breath sounds clear to auscultation [] Abdomen: Bowel sounds normal, soft, no tenderness, no masses, no pulsatile masses. [] Skin: dry scaly rash noted on patient's bilateral fingers diffusely. Back: No tenderness, no CVA tenderness. [] Extremities: No tenderness, no cyanosis, no clubbing, ROM intact, no edema. [] Neurologic: Alert and oriented X 3, normal motor function, normal sensory function, no focal deficits noted. [] Psychologic: Affect normal, judgement normal, mood normal. [] Current Patient Data Lab Values Laboratory Tests Test 08/28/19 16:30 08/28/19 16:33 Urine Collection Type Unknown Urine Color Yellow Urine Clarity Cloudy Urine pH 6.5 Urine Specific [place] 1.015 Urine Protein Negative mg/dL (NEG-TRACE) Urine Glucose (UA) Negative mg/dL (NEG) Urine Ketones (Stick) Negative mg/dL (NEG) Urine Blood Negative (NEG) Urine Nitrite Negative (NEG) Urine Bilirubin Negative (NEG) Urine Urobilinogen Dipstick 0.2 mg/dL (0.2 mg/dL) Urine Leukocyte Esterase Moderate (NEG) Urine RBC 3-5 /HPF (0-2) Urine WBC 5-10 /HPF (0-4) Urine Squamous Epithelial Cells Mod /LPF Urine Bacteria Few /HPF (0-FEW) Urine Mucus Slight /LPF Urine Trichomonas Present POC Urine HCG, Qualitative Hcg negative (Negative) EKG EKG [] Radiology/Procedures Radiology/Procedures [] Course & Med Decision Making Course & Med Decision Making Pertinent Labs and Imaging studies reviewed. (See chart for details) This is a 34-year-old female patient presenting to the ED today with a chronic rash to bilateral fingers. To be discharged with triamcinolone cream she is also complaining of dysuria. Urine positive for UTI, she is also positive for Trichomonas. She was given the standard STD treatment in the ED and discharged with cephalexin. STD education provided. Dragon Disclaimer Dragon Disclaimer This electronic medical record was generated, in whole or in part, using a voice recognition dictation system. Departure Departure Impression: Primary Impression: Trichomonas infection Additional Impression: Rash Disposition: 01 HOME, SELF-CARE Condition: STABLE Referrals: NO PCP (PCP) SMILEY CORREA MD follow up in 1-2 weeks Patient Instructions: Rash, [id number], Trichomoniasis, Urinary Tract Infe ction Additional Instructions: Please consider following up with a deck steward for your chronic rash. Take the prescribed antibiotics for UTI until completed. Please contact all your sex partners, let them know you tested positive for trichomonas and were treated ask them to seek treatment. Do not have sex for 2 weeks, use protection at all times. Scripts Triamcinolone Acetonide (TRIAMCINOLONE ACETONIDE 0.1% OINT) 15 Gm Oint...g. 1 NICHOLE TP BID for WOUND CARE, #1 TUBE Prov: CHANDRIKA BURK APRN 08/28/19 Cephalexin (CEPHALEXIN) 500 Mg Tablet 1 TAB PO BID, #14 TAB Prov: CHANDRIKA BURK APRN 08/28/19 Problem Qualifiers CHANDRIKA BURK APRN Aug 28, 2019 17:53
== END 2019-08-28 18:05 | disposition home or self-care (01) ==
LOC: ER 15:52
DX: A59.8 Trichomoniasis of other sites (principal); R21 Rash and other nonspecific skin eruption; G43.909 Migraine, unspecified, not intractable, without status migrainosus; Z98.51 Tubal ligation status; Z88.2 Allergy status to sulfonamides; Z79.899 Other long term (current) drug therapy
CPT/HCPCS: 81001; 81025; 96372; 99283; J0696; Q0144

== ENCOUNTER 2020-05-14 19:27 | Inpatient (IN) | payer MEDICAID ==
[~2020-05-14] VITALS: Ht 149.9 cm; Wt 54.9 kg
[~2020-05-14 19:27] MED LIST changes: +TRIA15OI TP
[2020-05-14 19:55] LABS: BILIRUBIN,URINE NEGATIVE (NEG); CLARITY,URINE CLOUDY; COLOR,URINE YELLOW; NITRITE,URINE NEGATIVE (NEG); PH,URINE 8.5 (<5.0-8.0); PROTEIN,URINE NEGATIVE (NEG-TRACE); UROBILINOGEN,URINE 0.2 mg/dL (0.2 mg/dL)
[2020-05-14 20:01] LABS: AMORPHOUS SEDIMENT,UR PRESENT /HPF; SQUAMOUS EPITHELIAL CELL,UR MOD /LPF
[2020-05-14 20:02] LABS: BACTERIA,URINE 0 /HPF (0-FEW); RBC,URINE 0 /HPF (0-2)
--- NOTE | 2020-05-14 20:17 | PHYS DOC ---
Past Medical History Past Medical History: Migraines Additional Past Medical Histor: migraines Past Surgical History: Tubal ligation Smoking Status: Never Smoker Alcohol Use: None Drug Use: None General Adult EDM: Chief Complaint: ABDOMINAL PAIN HPI: HPI: Patient is a 34 year oldbfw-lntr-oat female past medical history of migraines presents with a chief complaint of epigastric right upper quadrant abdominal pain. Patient has had abdominal pain x2 days progressively coming worse. Patient has associated nausea without vomiting or diarrhea. Patient also states she has a migraine headache. Patient with a past medical history of migraine headache and states this pain is typical. Patient denies any urinary issues she denies any vaginal discharge or bleeding constipation or diarrhea. Review of Systems: Review of Systems: Constitutional: Denies fever or chills. [] Eyes: Denies change in visual acuity. [] HENT: Denies nasal congestion or sore throat. [] Respiratory: Denies cough or shortness of breath. [] Cardiovascular: Denies chest pain or edema. [] GI: positive abdominal pain positive nausea no vomiting : Denies dysuria. [] Musculoskeletal: Denies back pain or joint pain. [] Integument: Denies rash. [] Neurologic: Denies headache, focal weakness or sensory changes. [] Endocrine: Denies polyuria or polydipsia. [] Lymphatic: Denies swollen glands. [] Psychiatric: Denies depression or anxiety. [] Heart Score: Risk Factors: Risk Factors: DM, Current or recent (<one month) smoker, HTN, HLP, family history of CAD, obesity. Risk Scores: Score 0 - 3: 2.5% MACE over next 6 weeks - Discharge Home Score 4 - 6: 20.3% MACE over next 6 weeks - Admit for Clinical Observation Score 7 - 10: 72.7% MACE over next 6 weeks - Early Invasive Strategies Allergies: Allergies: Allergies Coded Allergies Type Severity Reaction Last Updated Verified sulfamethoxazole Allergy Intermediate Rash 08/04/16 Yes trimethoprim Allergy Intermediate Rash 08/04/16 Yes Physical Exam: PE: Constitutional: Well developed, well nourished, no acute distress, non-toxic appearance. [] HENT: Normocephalic, atraumatic, bilateral external ears normal, oropharynx moist, no oral exudates, nose normal. [] Eyes: PERRLA, EOMI, conjunctiva normal, no discharge. [] Neck: Normal range of motion, no tenderness, supple, no stridor. [] Cardiovascular:Heart rate regular rhythm, no murmur [] Lungs & Thorax: Bilateral breath sounds clear to auscultation [] Abdomen: RUQ abd pain Skin: Warm, dry, no erythema, no rash. [] Back: No tenderness, no CVA tenderness. [] Extremities: No tenderness, no cyanosis, no clubbing, ROM intact, no edema. [] Neurologic: Alert and oriented X 3, normal motor function, normal sensory function, no focal deficits noted. [] Psychologic: Affect normal, judgement normal, mood normal. [] Current Patient Data: Labs: Laboratory Tests Test 05/14/20 19:44 05/14/20 19:52 Urine Collection Type Unknown Urine Color Yellow Urine Clarity Cloudy Urine pH 8.5 (<5.0-8.0) Urine Specific [place] 1.015 (1.000-1.030) Urine Protein Negative mg/dL (NEG-TRACE) Urine Glucose (UA) Negative mg/dL (NEG) Urine Ketones (Stick) Negative mg/dL (NEG) Urine Blood Negative (NEG) Urine Nitrite Negative (NEG) Urine Bilirubin Negative (NEG) Urine Urobilinogen Dipstick 0.2 mg/dL (0.2 mg/dL) Urine Leukocyte Esterase Negative (NEG) Urine RBC 0 /HPF (0-2) Urine WBC 1-4 /HPF (0-4) Urine Squamous Epithelial Cells Mod /LPF Urine Amorphous Sediment Present /HPF Urine Bacteria 0 /HPF (0-FEW) POC Urine HCG, Qualitative Hcg negative (Negative) Vital Signs: Vital Signs Date Time Temp Pulse Resp B/P (MAP) Pulse Ox O2 Delivery O2 Flow Rate FiO2 05/14/20 19:49 98.4 80 18 141/66 (91) 98 Room Air 98.4 EKG: EKG: [] Radiology/Procedures: Radiology/Procedures: [] Impression: US Verbal Report GB wall thickening Multiple gall stones CBD 1cm Course & Med Decision Making: Course & Med Decision Making Pertinent Labs and Imaging studies reviewed. (See chart for details) []Treated with IV fluids toradol and Zosyn. Admitted to hospitalist. Discussed patient with Dr Fink. Rika Disclaimer: Rika Disclaimer: This electronic medical record was generated, in whole or in part, using a voice recognition dictation system. Departure Departure Impression: Primary Impression: Abdominal pain Additional Impression: Acute cholecystitis Disposition: ADMITTED INPATIENT Admitting Physician: KVNG Condition: STABLE Referrals: NO PCP (PCP) Justicifation of Admission Dx: Justifications for Admission: Justification of Admission Dx: Yes Comments: Acute Cholecystitis LAINEY WADE I DO May 14, 2020 20:17
[2020-05-14 20:42] LABS: BASO % 1 % (0-3); EOS % 0 % (0-3); HEMATOCRIT 37.9 % (36.0-47.0); HEMOGLOBIN 12.7 g/dL (12.0-15.5); LYMPH # 1.2 x10^3/uL (1.0-4.8); LYMPH % 22 % (24-48); MEAN CORPUSCULAR HEMOGLOBIN 29 pg (25-35); MEAN CORPUSCULAR HGB CONC 34 g/dL (31-37); MEAN CORPUSCULAR VOLUME 86 fL (79-100); MONO # 0.4 x10^3/uL (0.0-1.1); MONO % 7 % (0-9); NEUT # 3.8 x10^3/uL (1.8-7.7); NEUT % 70 % (31-73); PLATELET COUNT 239 x10^3/uL (140-400); RED BLOOD COUNT 4.43 x10^6/uL (3.50-5.40); RED CELL DISTRIBUTION WIDTH 14.8 % (11.5-14.5); WHITE BLOOD COUNT 5.4 x10^3/uL (4.0-11.0)
[2020-05-14 20:46] LABS: CALCIUM 9.7 mg/dL (8.5-10.1); CREATININE 0.7 mg/dL (0.6-1.0); POTASSIUM 3.7 mmol/L (3.5-5.1)
[2020-05-14 20:52] LABS: ALBUMIN 3.8 g/dL (3.4-5.0); TOTAL BILIRUBIN 0.3 mg/dL (0.2-1.0); TOTAL PROTEIN 7.5 g/dL (6.4-8.2)
[2020-05-14] MEDS ORDERED: KETOROLAC 30 MG/ML VIAL. IVP ONE (21:15)
--- NOTE | 2020-05-14 21:56 | RAD ---
Examination: ABDOMEN LTD History: Reason: EPIGASTRIC RUQ ABD PAIN / Spl. Instructions: / History: Comparison/Correlation: None Findings: Right upper quadrant ultrasound was performed. The gallbladder is decompressed with wall thickening noted. Gallbladder calculi are present and numerous with wall echo shadow complex seen. Common bile duct measures up to 1 cm in diameter. No intrahepatic biliary dilatation. Sonographic Carney sign is reported. The liver is unremarkable. Proximal pancreas is normal. Distal pancreas is obscured by bowel gas.. Right kidney measures 9.1 cm x 2.8 cm x 3.4 center. No right hydronephrosis. Impression: Gallbladder calculi with findings of wall echo shadow complex. Sonographic Carney sign noted. Common bile duct is distended although there is no intrahepatic biliary dilatation. Correlate clinically in deciding upon further imaging assessment. Electronically signed by: Benny Caldwell MD (05/14/2020 9:53 PM) [facility]
[2020-05-14] MEDS ORDERED: ONDANSETRON PF 4 MG/2 ML VIAL. IV PRN (22:15)
[2020-05-14] MEDS ORDERED: PIPERACILLIN/TAZOBACTAM 4.5 GM in IV NORMAL SALINE 100ML 100 ML IV ONE (22:15)
[2020-05-14 22:27] VITALS: BP 98/58
[2020-05-14] MEDS: MORPHINE SULFATE 4 MG/ML VIAL. IV PRN (22:43)
[2020-05-14] MEDS ORDERED: IBUP-1027 PO (23:39)
[2020-05-14] MEDS ORDERED: ACET500T68 PO (23:39)
[2020-05-15] MEDS: MORPHINE SULFATE 4 MG/ML VIAL. IV PRN ×7 (01:15→21:51)
[2020-05-15 03:00] VITALS: BP 97/44
[2020-05-15 07:00] VITALS: BP 107/60
--- NOTE | 2020-05-15 08:17 | PDOC1 ---
History and Physical Date of Admission Date of Admission DATE: 05/15/20 TIME: 08:15 Identification/Chief Complaint Chief Complaint seen in ER with RUQ discomfort 34 year oldmbf-tngg-gcy female past medical history of migraines presents with a chief complaint of epigastric right upper quadrant abdominal pain. has had abdominal pain x2 days progressively coming worse., associated nausea without vomiting or diarrhea. , PAIN HAS BEEN WORSE AFTER MEALS states she has a migraine headache. Patient with a past medical history of migraine headache and states this pain is typical. Past Medical History Past Medical History Past Medical History Past Medical History: Migraines Additional Past Medical Histor: migraines Past Surgical History: Tubal ligation Smoking Status: Never Smoker Alcohol Use: None Drug Use: None FHX HTN Heme/Onc: No pertinent hx Psych: No pertinent hx Rheumatologic: No pertinent hx Endocrine: No pertinent hx Family History Family History: Hypertension Social History Smoke: No ALCOHOL: none Drugs: None Current Problem List Problem List Problems Medical Problems: (1) Abdominal pain Status: Acute (2) Acute cholecystitis Status: Acute Current Medications Current Medications Current Medications Ketorolac Tromethamine (Toradol 30mg Vial) 30 mg 1X ONCE IVP Last administered on 05/14/20at 21:24; Start 05/14/20 at 21:15; Stop 05/14/20 at 21:16; Status DC Ondansetron HCl (Zofran) 4 mg PRN Q8HRS PRN IV NAUSEA/VOMITING Last administered on 05/14/20at 22:43; Start 05/14/20 at 22:15; Stop 05/15/20 at 22:14 Morphine Sulfate (Morphine Sulfate) 4 mg PRN Q2HR PRN IV PAIN Last administered on 05/15/20at 04:46; Start 05/14/20 at 22:15; Stop 05/15/20 at 22:14 Piperacillin Sod/ Tazobactam Sod 4.5 gm/Sodium Chloride 100 ml @ 200 mls/hr 1X ONCE IV Last administered on 05/14/20at 22:43; Start 05/14/20 at 22:15; Stop 05/14/20 at 22:44; Status DC Active Scripts Active Reported Acetaminophen 500 Mg Tablet 1 Tab PO PRN Q6HRS PRN 15 Days Ibuprofen 400 Mg Tablet 400 Mg PO PRN Q6HRS PRN Allergies Allergies: Coded Allergies: promethazine (Verified Allergy, Intermediate, Anxiety, 05/15/20) panic attack sulfamethoxazole (Verified Allergy, Intermediate, Rash, 08/04/16) trimethoprim (Verified Allergy, Intermediate, Rash, 08/04/16) ROS Review of System Constitutional: Denies fever or chills. [] Eyes: Denies change in visual acuity. [] HENT: Denies nasal congestion or sore throat. [] Respiratory: Denies cough or shortness of breath. [] Cardiovascular: Denies chest pain or edema. [] GI: positive abdominal pain positive nausea no vomiting : Denies dysuria. [] Musculoskeletal: Denies back pain or joint pain. [] Integument: Denies rash. [] Neurologic: Denies headache, focal weakness or sensory changes. [] Endocrine: Denies polyuria or polydipsia. [] Lymphatic: Denies swollen glands. [] Psychiatric: Denies depression or anxiety. [] 14 pt ros otherwise neg General: No: Chills, Night Sweats, Fatigue, Malaise, Appetite, Other HEENT: YES: Heacaches; No: Visual Changes, Hearing change, Nasal congestion, Nasal discharge, Oral lesions, Sinus pain, Sore Throat, Epistaxis, Sneezing, Snoring, Tinnitus, Vertigo, Vocal changes, Other Hematological and Lymphatic: No: Bleeding Problems, Blood Clots, Blood Transfusions, Brusing, Night Sweats, Pallor, Swollen Lymph Nodes, Other Respiratory: No: Cough, Hemoptysis, Orthopnea, Pleuritic Pain, Shortness of breath, SOB with excertion, Sputum Changes, Stridor, Tachypnea, Wheezing, Other Cardiovascular: No Chest Pain, No Palpitations, No Orthopnea, No Paroxysmal Noc. Dyspnea, No Edema, No Lt Headedness, No Other Gastrointestinal: Yes Nausea, Yes Abdominal Pain; No Vomiting, No Diarrhea, No Constipation, No Melena, No Hematochezia, No Other Musculoskeletal: No Gait Disturbance, No Joint Pain, No Joint Stiffness, No Joint Swelling, No Muscle Pain, No Muscular Weakness, No Pain In:, No Swelling In:, No Other Neurological: No Behavorial Changes, No Bowel/Bladder ControlChng, No Confusion, No Dizziness, No Gait Disturbance, No Headaches, No Impaired Coord/balance, No Memory Loss, No Numbness/Tingling, No Seizures, No Speech Problems, No Tremors, No Visual Changes, No Weakness, No Other Skin: No Dry Skin, No Eczema, No Hair Changes, No Lumps, No Mole Changes, No Mottling, No Nail Changes, No Pruritus, No Rash, No Skin Lesion Changes, No Other, No Acne Physical Exam Physical Exam Constitutional: Well developed, well nourished, no acute distress, non-toxic appearance. [] HENT: Normocephalic, atraumatic, bilateral external ears normal, oropharynx moist, no oral exudates, nose normal. [] Eyes: PERRLA, EOMI, conjunctiva normal, no discharge. [] Neck: Normal range of motion, no tenderness, supple, no stridor. [] Cardiovascular:Heart rate regular rhythm, no murmur [] Lungs & Thorax: Bilateral breath sounds clear to auscultation [] Abdomen: RUQ abd pain Skin: Warm, dry, no erythema, no rash. [] Back: No tenderness, no CVA tenderness. [] Extremities: No tenderness, no cyanosis, no clubbing, ROM intact, no edema. [] Neurologic: Alert and oriented X 3, normal motor function, normal sensory function, no focal deficits noted. [] Psychologic: Affect normal, judgement normal, mood normal. [] General: Oriented X3, Cooperative HEENT: EOMI, Mucous membr. moist/pink Lungs: Clear to auscultation, Normal air movement Heart: RRR, no thrills, no gallops Breasts: Not examined Abdomen: Soft, No hepatosplenomegaly, Other (RUQ TENDER , NO REBOUND ) Rectal Exam: not examined PELVIC: Examination not indicated Extremities: No clubbing, No cyanosis, No edema Neuro: Normal speech, Strength at 5/5 X4 ext, Sensation intact, Cranial nerves 3-12 NL Psych/Mental Status: Mental status NL, Mood NL Vitals Vitals Vital Signs Date Time Temp Pulse Resp B/P (MAP) Pulse Ox O2 Delivery O2 Flow Rate FiO2 05/15/20 04:46 18 Room Air 05/15/20 03:00 98.0 59 97/44 (61) 99 98.0 Labs Labs Laboratory Tests Test 05/14/20 19:44 05/14/20 19:52 05/14/20 20:30 05/15/20 04:15 Urine Collection Type Unknown Urine Color Yellow Urine Clarity Cloudy Urine pH 8.5 (<5.0-8.0) Urine Specific [place] 1.015 (1.000-1.030) Urine Protein Negative mg/dL (NEG-TRACE) Urine Glucose (UA) Negative mg/dL (NEG) Urine Ketones (Stick) Negative mg/dL (NEG) Urine Blood Negative (NEG) Urine Nitrite Negative (NEG) Urine Bilirubin Negative (NEG) Urine Urobilinogen Dipstick 0.2 mg/dL (0.2 mg/dL) Urine Leukocyte Esterase Negative (NEG) Urine RBC 0 /HPF (0-2) Urine WBC 1-4 /HPF (0-4) Urine Squamous Epithelial Cells Mod /LPF Urine Amorphous Sediment Present /HPF Urine Bacteria 0 /HPF (0-FEW) Bedside Urine HCG, Qualitative Hcg negative (Negative) White Blood Count 5.4 x10^3/uL (4.0-11.0) Red Blood Count 4.43 x10^6/uL (3.50-5.40) Hemoglobin 12.7 g/dL (12.0-15.5) Hematocrit 37.9 % (36.0-47.0) Mean Corpuscular Volume 86 fL (79-100) Mean Corpuscular Hemoglobin 29 pg (25-35) Mean Corpuscular Hemoglobin Concent 34 g/dL (31-37) Red Cell Distribution Width 14.8 % (11.5-14.5) Platelet Count 239 x10^3/uL (140-400) Neutrophils (%) (Auto) 70 % (31-73) Lymphocytes (%) (Auto) 22 % (24-48) Monocytes (%) (Auto) 7 % (0-9) Eosinophils (%) (Auto) 0 % (0-3) Basophils (%) (Auto) 1 % (0-3) Neutrophils # (Auto) 3.8 x10^3/uL (1.8-7.7) Lymphocytes # (Auto) 1.2 x10^3/uL (1.0-4.8) Monocytes # (Auto) 0.4 x10^3/uL (0.0-1.1) Eosinophils # (Auto) 0.0 x10^3/uL (0.0-0.7) Basophils # (Auto) 0.0 x10^3/uL (0.0-0.2) Sodium Level 140 mmol/L (136-145) Potassium Level 3.7 mmol/L (3.5-5.1) Chloride Level 102 mmol/L (98-107) Carbon Dioxide Level 30 mmol/L (21-32) Anion Gap 8 (6-14) Blood Urea Nitrogen 8 mg/dL (7-20) Creatinine 0.7 mg/dL (0.6-1.0) Estimated GFR (Cockcroft-Gault) 97.0 BUN/Creatinine Ratio 11 (6-20) Glucose Level 96 mg/dL (70-99) Calcium Level 9.7 mg/dL (8.5-10.1) Total Bilirubin 0.3 mg/dL (0.2-1.0) Aspartate Amino Transf (AST/SGOT) 18 U/L (15-37) Alanine Aminotransferase (ALT/SGPT) 19 U/L (14-59) Alkaline Phosphatase 61 U/L (46-116) Total Protein 7.5 g/dL (6.4-8.2) Albumin 3.8 g/dL (3.4-5.0) Albumin/Globulin Ratio 1.0 (1.0-1.7) Lipase 66 U/L (73-393) SARS-CoV-2 Antigen (Rapid) Negative (NEGATIVE) Laboratory Tests Test 05/14/20 19:44 05/14/20 19:52 05/14/20 20:30 05/15/20 04:15 Urine Collection Type Unknown Urine Color Yellow Urine Clarity Cloudy Urine pH 8.5 (<5.0-8.0) Urine Specific [place] 1.015 (1.000-1.030) Urine Protein Negative mg/dL (NEG-TRACE) Urine Glucose (UA) Negative mg/dL (NEG) Urine Ketones (Stick) Negative mg/dL (NEG) Urine Blood Negative (NEG) Urine Nitrite Negative (NEG) Urine Bilirubin Negative (NEG) Urine Urobilinogen Dipstick 0.2 mg/dL (0.2 mg/dL) Urine Leukocyte Esterase Negative (NEG) Urine RBC 0 /HPF (0-2) Urine WBC 1-4 /HPF (0-4) Urine Squamous Epithelial Cells Mod /LPF Urine Amorphous Sediment Present /HPF Urine Bacteria 0 /HPF (0-FEW) Bedside Urine HCG, Qualitative Hcg negative (Negative) White Blood Count 5.4 x10^3/uL (4.0-11.0) Red Blood Count 4.43 x10^6/uL (3.50-5.40) Hemoglobin 12.7 g/dL (12.0-15.5) Hematocrit 37.9 % (36.0-47.0) Mean Corpuscular Volume 86 fL (79-100) Mean Corpuscular Hemoglobin 29 pg (25-35) Mean Corpuscular Hemoglobin Concent 34 g/dL (31-37) Red Cell Distribution Width 14.8 % (11.5-14.5) Platelet Count 239 x10^3/uL (140-400) Neutrophils (%) (Auto) 70 % (31-73) Lymphocytes (%) (Auto) 22 % (24-48) Monocytes (%) (Auto) 7 % (0-9) Eosinophils (%) (Auto) 0 % (0-3) Basophils (%) (Auto) 1 % (0-3) Neutrophils # (Auto) 3.8 x10^3/uL (1.8-7.7) Lymphocytes # (Auto) 1.2 x10^3/uL (1.0-4.8) Monocytes # (Auto) 0.4 x10^3/uL (0.0-1.1) Eosinophils # (Auto) 0.0 x10^3/uL (0.0-0.7) Basophils # (Auto) 0.0 x10^3/uL (0.0-0.2) Sodium Level 140 mmol/L (136-145) Potassium Level 3.7 mmol/L (3.5-5.1) Chloride Level 102 mmol/L (98-107) Carbon Dioxide Level 30 mmol/L (21-32) Anion Gap 8 (6-14) Blood Urea Nitrogen 8 mg/dL (7-20) Creatinine 0.7 mg/dL (0.6-1.0) Estimated GFR (Cockcroft-Gault) 97.0 BUN/Creatinine Ratio 11 (6-20) Glucose Level 96 mg/dL (70-99) Calcium Level 9.7 mg/dL (8.5-10.1) Total Bilirubin 0.3 mg/dL (0.2-1.0) Aspartate Amino Transf (AST/SGOT) 18 U/L (15-37) Alanine Aminotransferase (ALT/SGPT) 19 U/L (14-59) Alkaline Phosphatase 61 U/L (46-116) Total Protein 7.5 g/dL (6.4-8.2) Albumin 3.8 g/dL (3.4-5.0) Albumin/Globulin Ratio 1.0 (1.0-1.7) Lipase 66 U/L (73-393) SARS-CoV-2 Antigen (Rapid) Negative (NEGATIVE) Images Images Examination: ABDOMEN LTD History: Reason: EPIGASTRIC RUQ ABD PAIN / Spl. Instructions: / History: Comparison/Correlation: None Findings: Right upper quadrant ultrasound was performed. The gallbladder is decompressed with wall thickening noted. Gallbladder calculi are present and numerous with wall echo shadow complex seen. Common bile duct measures up to 1 cm in diameter. No intrahepatic biliary dilatation. Sonographic Carney sign is reported. The liver is unremarkable. Proximal pancreas is normal. Distal pancreas is obscured by bowel gas.. Right kidney measures 9.1 cm x 2.8 cm x 3.4 center. No right hydronephrosis. Impression: Gallbladder calculi with findings of wall echo shadow complex. Sonographic Carney sign noted. Common bile duct is distended although there is no intrahepatic biliary dilatation. Correlate clinically in deciding upon further imaging assessment. Electronically signed by: Bon Reed MD (05/14/2020 9:53 PM) [facility] DICTATED and SIGNED BY: BON REED MD DATE: 05/14/202152 VTE Prophylaxis Ordered VTE Prophylaxis Devices: Yes VTE Pharmacological Prophylaxi: Yes Assessment/Plan Assessment/Plan Impression: SYMPTOMATIC Gallstones Gallbladder calculi with findings of wall echo shadow complex. Sonographic Carney sign noted. Common bile duct is distended ///no intrahepatic biliary dilatation. hx common migrane headaches neg covid screen in ER plan admit gen surgery consult npo iv fluid support iv pain control prn dvt prophylaxis, scd's d/w rn Justifications for Admission Other Justification ADY URIBE MD May 15, 2020 08:17
[2020-05-15] MEDS ORDERED: MAG HYDROX/ALUMINUM HYD/SIMETH 30 ML ORAL.SUSP PO PRN (08:30)
[2020-05-15] MEDS ORDERED: ZOLPIDEM 5 MG TABLET. PO PRN (08:30)
[2020-05-15] MEDS ORDERED: guaiFENesin ORAL 200 MG/10 ML LIQUID. PO PRN (08:30)
[2020-05-15] MEDS ORDERED: 0.9 % SODIUM CHLORIDE 10 ML DISP.SYRIN. IV PRN (08:30)
[2020-05-15] MEDS ORDERED: ACETAMINOPHEN 325 MG TABLET. PO PRN (08:30)
[2020-05-15] MEDS ORDERED: SODIUM PHOSPHATES 19/7GM 133 ML ENEMA. PR PRN (08:30)
[2020-05-15] MEDS ORDERED: cloNIDine HCL 0.1 MG TABLET PO PRN (08:30)
[2020-05-15] MEDS ORDERED: DOCUSATE SODIUM 100 MG CAPSULE. PO PRN (08:30)
[2020-05-15] MEDS ORDERED: ALBUTEROL SULFATE 2.5 MG/3 ML NEBU. NEB PRN (08:30)
[2020-05-15] MEDS ORDERED: LORazepam 0.5 MG TABLET PO PRN (08:30)
--- NOTE | 2020-05-15 08:44 | PDOC2 ---
LIZA ALTMAN RESIDENCY COORDINATOR 05/15/20 0844: CONSULT Date of Consult Date of Consult DATE: 05/15/20 TIME: 08:40 Reason for Consult Reason for Consult: cholecystitis Referring Physician Referring Physician: ER Identification/Chief Complaint Chief Complaint abdominal pain Source Source: Chart review, Patient History of Present Illness Reason for Visit: Acute onset RUQ pain that radiates to back started 3 days ago. Pain is cons tant, associated nausea. No emesis. No diarrhea or constipation. No similar symptoms in past. Laying still helps pain some Past Medical History Past Medical History no pertinent hx Heme/Onc: No pertinent hx Psych: No pertinent hx Rheumatologic: No pertinent hx Endocrine: No pertinent hx Past Surgical History Past Surgical History: No pertinent history Family History Family History: Hypertension Social History No ALCOHOL: none Drugs: None Lives: with Family Current Problem List Problem List Problems Medical Problems: (1) Abdominal pain Status: Acute (2) Acute cholecystitis Status: Acute Current Medications Current Medications Current Medications Ketorolac Tromethamine (Toradol 30mg Vial) 30 mg 1X ONCE IVP Last administered on 05/14/20at 21:24; Start 05/14/20 at 21:15; Stop 05/14/20 at 21:16; Status DC Ondansetron HCl (Zofran) 4 mg PRN Q8HRS PRN IV NAUSEA/VOMITING Last administered on 05/14/20at 22:43; Start 05/14/20 at 22:15; Stop 05/15/20 at 22:14 Morphine Sulfate (Morphine Sulfate) 4 mg PRN Q2HR PRN IV PAIN Last administered on 05/15/20at 04:46; Start 05/14/20 at 22:15; Stop 05/15/20 at 22:14 Piperacillin Sod/ Tazobactam Sod 4.5 gm/Sodium Chloride 100 ml @ 200 mls/hr 1X ONCE IV Last administered on 05/14/20at 22:43; Start 05/14/20 at 22:15; Stop 05/14/20 at 22:44; Status DC Sodium Chloride (Normal Saline Flush) 3 ml QSHIFT PRN IV AFTER MEDS AND BLOOD DRAWS; Start 05/15/20 at 08:30; Status UNV Sodium Chloride 1,000 ml @ 100 mls/hr Q10H IV ; Start 05/15/20 at 08:19; Status UNV Zolpidem Tartrate (Ambien) 5 mg PRN QHS PRN PO INSOMNIA; Start 05/15/20 at 08:30; Status UNV Acetaminophen (Tylenol) 650 mg PRN Q4HRS PRN PO TEMP OVER 100.4F OR MILD PAIN; Start 05/15/20 at 08:30; Status UNV Al Hydroxide/Mg Hydroxide (Mylanta Plus Xs) 30 ml PRN DAILY PRN PO HEARTBURN / GAS; Start 05/15/20 at 08:30; Status UNV Clonidine HCl (Catapres) 0.1 mg PRN Q6HRS PRN PO SBP>160 OR DBP>90; Start 05/15/20 at 08:30; Status UNV Sodium Monofluorophosphate (Fleet Adult) 133 ml PRN DAILY PRN [place] CONSTIPATION; Start 05/15/20 at 08:30; Status UNV Docusate Sodium (Colace) 100 mg PRN BID PRN PO HARD STOOLS; Start 05/15/20 at 08:30; Status UNV Albuterol Sulfate (Ventolin Neb Soln) 2.5 mg PRN Q4HRS PRN NEB SHORTNESS OF BREATH; Start 05/15/20 at 08:30; Status UNV Guaifenesin (Robitussin) 200 mg PRN Q4HRS PRN PO COUGH; Start 05/15/20 at 08:30; Status UNV Lorazepam (Ativan) 0.5 mg PRN Q4HRS PRN PO ANXIETY / AGITATION; Start 05/15/20 at 08:30; Status UNV Hydromorphone HCl (Dilaudid) 0.4 mg PRN Q4HRS PRN IVP PAIN; Start 05/15/20 at 08:45; Status UNV Active Scripts Active Reported Acetaminophen 500 Mg Tablet 1 Tab PO PRN Q6HRS PRN 15 Days Ibuprofen 400 Mg Tablet 400 Mg PO PRN Q6HRS PRN Allergies Allergies: Coded Allergies: promethazine (Verified Allergy, Intermediate, Anxiety, 05/15/20) panic attack sulfamethoxazole (Verified Allergy, Intermediate, Rash, 08/04/16) trimethoprim (Verified Allergy, Intermediate, Rash, 08/04/16) ROS General: No: Chills, Other (fevers) PSYCHOLOGICAL ROS: No: Anxiety, Depression Eyes: No Blurry vision, No Double vision HEENT: No: Heacaches, Sore Throat Hematological and Lymphatic: No: Bleeding Problems, Blood Clots Respiratory: No: Cough, Shortness of breath Cardiovascular: No Chest Pain, No Palpitations Gastrointestinal: Yes Other (see hpi) Genitourinary: No Dysuria, No Hematuria Musculoskeletal: No Joint Pain Neurological: No Impaired Coord/balance, No Numbness/Tingling Skin: No Pruritus, No Rash Physical Exam General: Alert, Oriented X3, Cooperative HEENT: Atraumatic, PERRLA Lungs: Clear to auscultation, Normal air movement Heart: Regular rate, Normal S1, Normal S2 Abdomen: Soft, Other (RUQ TTP) Extremities: No clubbing, No cyanosis Skin: No rashes, No breakdown Neuro: Normal gait, Normal speech Psych/Mental Status: Mental status NL, Mood NL MUSCULOSKELETAL: No deformity, No swelling Vitals VITALS Vital Signs Date Time Temp Pulse Resp B/P (MAP) Pulse Ox O2 Delivery O2 Flow Rate FiO2 05/15/20 04:46 18 Room Air 05/15/20 03:00 98.0 59 97/44 (61) 99 98.0 Labs Labs Laboratory Tests Test 05/14/20 19:44 05/14/20 19:52 05/14/20 20:30 05/15/20 04:15 Urine Collection Type Unknown Urine Color Yellow Urine Clarity Cloudy Urine pH 8.5 (<5.0-8.0) Urine Specific [place] 1.015 (1.000-1.030) Urine Protein Negative mg/dL (NEG-TRACE) Urine Glucose (UA) Negative mg/dL (NEG) Urine Ketones (Stick) Negative mg/dL (NEG) Urine Blood Negative (NEG) Urine Nitrite Negative (NEG) Urine Bilirubin Negative (NEG) Urine Urobilinogen Dipstick 0.2 mg/dL (0.2 mg/dL) Urine Leukocyte Esterase Negative (NEG) Urine RBC 0 /HPF (0-2) Urine WBC 1-4 /HPF (0-4) Urine Squamous Epithelial Cells Mod /LPF Urine Amorphous Sediment Present /HPF Urine Bacteria 0 /HPF (0-FEW) Bedside Urine HCG, Qualitative Hcg negative (Negative) White Blood Count 5.4 x10^3/uL (4.0-11.0) Red Blood Count 4.43 x10^6/uL (3.50-5.40) Hemoglobin 12.7 g/dL (12.0-15.5) Hematocrit 37.9 % (36.0-47.0) Mean Corpuscular Volume 86 fL (79-100) Mean Corpuscular Hemoglobin 29 pg (25-35) Mean Corpuscular Hemoglobin Concent 34 g/dL (31-37) Red Cell Distribution Width 14.8 % (11.5-14.5) Platelet Count 239 x10^3/uL (140-400) Neutrophils (%) (Auto) 70 % (31-73) Lymphocytes (%) (Auto) 22 % (24-48) Monocytes (%) (Auto) 7 % (0-9) Eosinophils (%) (Auto) 0 % (0-3) Basophils (%) (Auto) 1 % (0-3) Neutrophils # (Auto) 3.8 x10^3/uL (1.8-7.7) Lymphocytes # (Auto) 1.2 x10^3/uL (1.0-4.8) Monocytes # (Auto) 0.4 x10^3/uL (0.0-1.1) Eosinophils # (Auto) 0.0 x10^3/uL (0.0-0.7) Basophils # (Auto) 0.0 x10^3/uL (0.0-0.2) Sodium Level 140 mmol/L (136-145) Potassium Level 3.7 mmol/L (3.5-5.1) Chloride Level 102 mmol/L (98-107) Carbon Dioxide Level 30 mmol/L (21-32) Anion Gap 8 (6-14) Blood Urea Nitrogen 8 mg/dL (7-20) Creatinine 0.7 mg/dL (0.6-1.0) Estimated GFR (Cockcroft-Gault) 97.0 BUN/Creatinine Ratio 11 (6-20) Glucose Level 96 mg/dL (70-99) Calcium Level 9.7 mg/dL (8.5-10.1) Total Bilirubin 0.3 mg/dL (0.2-1.0) Aspartate Amino Transf (AST/SGOT) 18 U/L (15-37) Alanine Aminotransferase (ALT/SGPT) 19 U/L (14-59) Alkaline Phosphatase 61 U/L (46-116) Total Protein 7.5 g/dL (6.4-8.2) Albumin 3.8 g/dL (3.4-5.0) Albumin/Globulin Ratio 1.0 (1.0-1.7) Lipase 66 U/L (73-393) SARS-CoV-2 Antigen (Rapid) Negative (NEGATIVE) Laboratory Tests Test 05/14/20 19:44 05/14/20 19:52 05/14/20 20:30 05/15/20 04:15 Urine Collection Type Unknown Urine Color Yellow Urine Clarity Cloudy Urine pH 8.5 (<5.0-8.0) Urine Specific [place] 1.015 (1.000-1.030) Urine Protein Negative mg/dL (NEG-TRACE) Urine Glucose (UA) Negative mg/dL (NEG) Urine Ketones (Stick) Negative mg/dL (NEG) Urine Blood Negative (NEG) Urine Nitrite Negative (NEG) Urine Bilirubin Negative (NEG) Urine Urobilinogen Dipstick 0.2 mg/dL (0.2 mg/dL) Urine Leukocyte Esterase Negative (NEG) Urine RBC 0 /HPF (0-2) Urine WBC 1-4 /HPF (0-4) Urine Squamous Epithelial Cells Mod /LPF Urine Amorphous Sediment Present /HPF Urine Bacteria 0 /HPF (0-FEW) Bedside Urine HCG, Qualitative Hcg negative (Negative) White Blood Count 5.4 x10^3/uL (4.0-11.0) Red Blood Count 4.43 x10^6/uL (3.50-5.40) Hemoglobin 12.7 g/dL (12.0-15.5) Hematocrit 37.9 % (36.0-47.0) Mean Corpuscular Volume 86 fL (79-100) Mean Corpuscular Hemoglobin 29 pg (25-35) Mean Corpuscular Hemoglobin Concent 34 g/dL (31-37) Red Cell Distribution Width 14.8 % (11.5-14.5) Platelet Count 239 x10^3/uL (140-400) Neutrophils (%) (Auto) 70 % (31-73) Lymphocytes (%) (Auto) 22 % (24-48) Monocytes (%) (Auto) 7 % (0-9) Eosinophils (%) (Auto) 0 % (0-3) Basophils (%) (Auto) 1 % (0-3) Neutrophils # (Auto) 3.8 x10^3/uL (1.8-7.7) Lymphocytes # (Auto) 1.2 x10^3/uL (1.0-4.8) Monocytes # (Auto) 0.4 x10^3/uL (0.0-1.1) Eosinophils # (Auto) 0.0 x10^3/uL (0.0-0.7) Basophils # (Auto) 0.0 x10^3/uL (0.0-0.2) Sodium Level 140 mmol/L (136-145) Potassium Level 3.7 mmol/L (3.5-5.1) Chloride Level 102 mmol/L (98-107) Carbon Dioxide Level 30 mmol/L (21-32) Anion Gap 8 (6-14) Blood Urea Nitrogen 8 mg/dL (7-20) Creatinine 0.7 mg/dL (0.6-1.0) Estimated GFR (Cockcroft-Gault) 97.0 BUN/Creatinine Ratio 11 (6-20) Glucose Level 96 mg/dL (70-99) Calcium Level 9.7 mg/dL (8.5-10.1) Total Bilirubin 0.3 mg/dL (0.2-1.0) Aspartate Amino Transf (AST/SGOT) 18 U/L (15-37) Alanine Aminotransferase (ALT/SGPT) 19 U/L (14-59) Alkaline Phosphatase 61 U/L (46-116) Total Protein 7.5 g/dL (6.4-8.2) Albumin 3.8 g/dL (3.4-5.0) Albumin/Globulin Ratio 1.0 (1.0-1.7) Lipase 66 U/L (73-393) SARS-CoV-2 Antigen (Rapid) Negative (NEGATIVE) Assessment/Plan Assessment/Plan cholecystitis Dilated CBD 1cm--no stone seen, LFTS normal will check MRCP and consult Gi pending above tentative plan for lap rosalina tomorrow SULEMAN LEROY MD 05/15/20 9740: CONSULT Assessment/Plan Assessment/Plan Pt seen and examined. Agree with Ms. Altman's note Pt with c/o RUQ pain. TTP RUQ US and MRCP reviewed. Concern for choledocholithiasis TO OR in laproscopic versus open cholecystectomy with cholangiogram. R/R/B/A d/w p. Risks, including, but not limited to: bleeding, infection, d amage to surrounding structures, risk of anesthesia, risk of open. She appears to understand, her questions are answered and she elects to proceed. Thanks for consult! LIZA ALTMAN APRN May 15, 2020 08:44 SULEMAN LEROY MD May 15, 2020 17:50
[2020-05-15] MEDS ORDERED: HYDROmorphone 2 MG/ML VIAL IVP PRN (08:45)
--- NOTE | 2020-05-15 09:32 | PDOC2 ---
GI CONSULT Date of Service: DATE: 05/15/20 TIME: 09:28 HPI: HPI: 34 y/o female w/ onset of constant upper abdominal pain (epigastric initially, then radiating to RUQ and around to back) w/ nausea on Wednesday. No similar symptoms in the past. Imaging notes cholelithiasis and dilated CBD w/ normal LFTs. D/w surgery - plans for MRCP. Denies reflux/heartburn, dysphagia, vomiting, diarrhea, constipation, hematochezia, melena, and weight loss. No previous EGD or colonoscopy. No liver, pancreas, or PUD history. No NSAIDs. PMH: PMH: UTI, headache wisdom teeth removal, tubal ligation FH: Family History: No pertinent hx (deneis GI cancers and GB disease) Social History: Smoke: No ALCOHOL: none Drugs: None ROS: GEN: Denies fevers, chills, sweats HEENT: Denies blurred vision, sore throat CV: Denies chest pain RESP: Denies shortness of air, cough GI: Per HPI : Denies hematuria, dysuria ENDO: Denies weight changes NEURO: Denies confusion, dizziness MSK: Denies weakness, joint pain/swelling SKIN: Denies jaundice, pruritus Vitals: Vitals: Vital Signs Date Time Temp Pulse Resp B/P (MAP) Pulse Ox O2 Delivery O2 Flow Rate FiO2 05/15/20 07:00 97.8 66 18 107/60 (76) 100 Room Air 97.8 Labs: Labs: Laboratory Tests Test 05/14/20 19:44 05/14/20 19:52 05/14/20 20:30 05/15/20 04:15 Urine Collection Type Unknown Urine Color Yellow Urine Clarity Cloudy Urine pH 8.5 (<5.0-8.0) Urine Specific [place] 1.015 (1.000-1.030) Urine Protein Negative mg/dL (NEG-TRACE) Urine Glucose (UA) Negative mg/dL (NEG) Urine Ketones (Stick) Negative mg/dL (NEG) Urine Blood Negative (NEG) Urine Nitrite Negative (NEG) Urine Bilirubin Negative (NEG) Urine Urobilinogen Dipstick 0.2 mg/dL (0.2 mg/dL) Urine Leukocyte Esterase Negative (NEG) Urine RBC 0 /HPF (0-2) Urine WBC 1-4 /HPF (0-4) Urine Squamous Epithelial Cells Mod /LPF Urine Amorphous Sediment Present /HPF Urine Bacteria 0 /HPF (0-FEW) Bedside Urine HCG, Qualitative Hcg negative (Negative) White Blood Count 5.4 x10^3/uL (4.0-11.0) Red Blood Count 4.43 x10^6/uL (3.50-5.40) Hemoglobin 12.7 g/dL (12.0-15.5) Hematocrit 37.9 % (36.0-47.0) Mean Corpuscular Volume 86 fL (79-100) Mean Corpuscular Hemoglobin 29 pg (25-35) Mean Corpuscular Hemoglobin Concent 34 g/dL (31-37) Red Cell Distribution Width 14.8 % (11.5-14.5) Platelet Count 239 x10^3/uL (140-400) Neutrophils (%) (Auto) 70 % (31-73) Lymphocytes (%) (Auto) 22 % (24-48) Monocytes (%) (Auto) 7 % (0-9) Eosinophils (%) (Auto) 0 % (0-3) Basophils (%) (Auto) 1 % (0-3) Neutrophils # (Auto) 3.8 x10^3/uL (1.8-7.7) Lymphocytes # (Auto) 1.2 x10^3/uL (1.0-4.8) Monocytes # (Auto) 0.4 x10^3/uL (0.0-1.1) Eosinophils # (Auto) 0.0 x10^3/uL (0.0-0.7) Basophils # (Auto) 0.0 x10^3/uL (0.0-0.2) Sodium Level 140 mmol/L (136-145) Potassium Level 3.7 mmol/L (3.5-5.1) Chloride Level 102 mmol/L (98-107) Carbon Dioxide Level 30 mmol/L (21-32) Anion Gap 8 (6-14) Blood Urea Nitrogen 8 mg/dL (7-20) Creatinine 0.7 mg/dL (0.6-1.0) Estimated GFR (Cockcroft-Gault) 97.0 BUN/Creatinine Ratio 11 (6-20) Glucose Level 96 mg/dL (70-99) Calcium Level 9.7 mg/dL (8.5-10.1) Total Bilirubin 0.3 mg/dL (0.2-1.0) Aspartate Amino Transf (AST/SGOT) 18 U/L (15-37) Alanine Aminotransferase (ALT/SGPT) 19 U/L (14-59) Alkaline Phosphatase 61 U/L (46-116) Total Protein 7.5 g/dL (6.4-8.2) Albumin 3.8 g/dL (3.4-5.0) Albumin/Globulin Ratio 1.0 (1.0-1.7) Lipase 66 U/L (73-393) SARS-CoV-2 Antigen (Rapid) Negative (NEGATIVE) Allergies: Coded Allergies: promethazine (Verified Allergy, Intermediate, Anxiety, 05/15/20) panic attack sulfamethoxazole (Verified Allergy, Intermediate, Rash, 08/04/16) trimethoprim (Verified Allergy, Intermediate, Rash, 08/04/16) Medications: Current Medications Medications (Trade) Dose Ordered Sig/Diomedes Route PRN Reason Start Time Stop Time Status Last Admin Dose Admin Ketorolac Tromethamine (Toradol 30mg Vial) 30 mg 1X ONCE IVP 05/14/20 21:15 05/14/20 21:16 DC 05/14/20 21:24 Ondansetron HCl (Zofran) 4 mg PRN Q8HRS PRN IV NAUSEA/VOMITING 05/14/20 22:15 05/15/20 22:14 05/14/20 22:43 Morphine Sulfate (Morphine Sulfate) 4 mg PRN Q2HR PRN IV PAIN 05/14/20 22:15 05/15/20 22:14 05/15/20 04:46 Piperacillin Sod/ Tazobactam Sod 4.5 gm/Sodium Chloride 100 ml @ 200 mls/hr 1X ONCE IV 05/14/20 22:15 05/14/20 22:44 DC 05/14/20 22:43 Imaging: Imaging: Abd US Impression: Gallbladder calculi with findings of wall echo shadow complex. Sonographic Carney sign noted. Common bile duct is distended although there is no intrahepatic biliary dilatation. Correlate clinically in deciding upon further imaging assessment. PE: GEN: NAD HEENT: Atraumatic, PERRL LUNGS: CTAB HEART: RRR ABD: quiet, soft, epigastric to RUQ discomfort EXTREMITY: No edema SKIN: No rashes, no jaundice NEURO/PSYCH: A & O 3 A/P: A/P: Abd pain, nausea Cholelithiasis, distended CBD CRC screen - average risk COVID negative 05/15 -- Await MRCP, monitor LFTs. EVERETT REAGAN May 15, 2020 09:32
[2020-05-15] MEDS: IV NORMAL SALINE 1000ML BAG 1,000 ML IV SCH ×3 (09:49→21:51)
[2020-05-15 11:00] VITALS: BP 88/48
--- NOTE | 2020-05-15 12:48 | NUR ---
SW following. Spoke with RN and reviewed chart. Pt from home on room air. Pt currently NPO and on IV pain medications. Consult to surgery per possible gallstones per RN. Pt admitted observation at this time. Pt COVID negative. SW following as needed.
[2020-05-15 15:00] VITALS: BP 92/49
--- NOTE | 2020-05-15 17:17 | RAD ---
MRI abdomen without contrast and MRCP: Clinical indications: Dilated common bile duct seen on limited abdomen ultrasound study dated May 14, 2020. Cholelithiasis. Technique: T1 and T2 weighted MRI sequences of the abdomen was performed in the axial and coronal planes. In phase and out of phase MRI sequences were performed. Using a single shot heavily T2-weighted fast spin-echo and MIP algorithm, 3-D reconstructed MRCP was generated. Findings: MRI abdomen: The liver is homogeneous in appearance. The spleen is homogeneous in appearance. The spleen is not enlarged. The pancreas is homogeneous in appearance. The gallbladder contains multiple gallstones. The largest stone measures 18 mm. No gallbladder wall thickening or pericholecystic free fluid is seen. No adrenal mass is evident. Both kidneys are normal. No focal aneurysmal dilatation of the abdominal aorta is seen. No enlarged abdominal lymphadenopathy is seen. No ascites is seen. MRCP: There is dilatation of the extrahepatic biliary tree measuring up to 9 mm in caliber. There is a low signal round area within the common hepatic duct measuring 5 mm in size seen on series 9 image 17 and series 12 and image 24 which may represent a common hepatic duct stone. However, this is seen on the edge of the common hepatic duct on series 11 and image 5. This could represent a stone adherent to the common hepatic duct wall. No definite stone is seen within the common bile duct. No common bile duct stricture is seen. No abnormal dilatation of the pancreatic duct is seen. IMPRESSION: Cholelithiasis. Dilatation of the extra hepatic biliary tree measuring up to 9 mm. Possible common hepatic duct stone measuring 5 mm. Electronically signed by: Zhou Whyte MD (05/15/2020 5:14 PM) [id number]
[2020-05-15 19:00] VITALS: BP 93/49
[2020-05-15 22:38] VITALS: BP 91/50
[2020-05-16] MEDS: MORPHINE SULFATE 4 MG/ML VIAL. IV PRN ×9 (00:35→22:30)
[2020-05-16 03:00] VITALS: BP 106/54
[2020-05-16] MEDS: IV NORMAL SALINE 1000ML BAG 1,000 ML IV SCH ×2 (06:21→17:16)
[2020-05-16] MEDS ORDERED: fentaNYL PF VIAL 100 MCG/2 ML VIAL IV PRN ×2 (07:00)
[2020-05-16] MEDS ORDERED: IV RINGERS,LACTATED 1000ML 1,000 ML IV SCH (07:00)
[2020-05-16] MEDS ORDERED: HYDROmorphone 2 MG/ML VIAL IV PRN (07:00)
[2020-05-16] MEDS ORDERED: MORPHINE SULFATE 2 MG/ML VIAL. IV PRN (07:00)
--- NOTE | 2020-05-16 07:18 | PDOC ---
PROGRESS NOTES Date of Service: DATE: 05/16/20 TIME: 07:17 Chief Complaint Chief Complaint VTE Prophylaxis Ordered VTE Prophylaxis Devices: Yes VTE Pharmacological Prophylaxi: Yes Assessment/Plan Assessment/Plan Impression: SYMPTOMATIC Gallstones Gallbladder calculi with findings of wall echo shadow complex. Sonographic Carney sign noted. Common bile duct is distended ///no intrahepatic biliary dilatation. hx common migrane headaches neg covid screen in ER pos pos on confirmation Dilatation of the extra hepatic biliary tree measuring up to 9 mm. Possible common hepatic duct stone measuring 5 mm. plan admit gen surgery consult npo iv fluid support iv pain control prn dvt prophylaxis, scd's lovenox 60 mg sq bid post surgery MRCP with possible CBD stone PULM CONSULT PCXR Ferritin D/W RN 39 min pt exam, chart review, > 50% of time spent with exam, chart review, pt care coordination d/w rn History of Present Illness History of Present Illness Identification/Chief Complaint Chief Complaint seen in ER with RUQ discomfort 34 year [id number] female past medical history of migraines presents with a chief complaint of epigastric right upper quadrant abdominal pain. has had abdominal pain x2 days progressively coming worse., associated nausea without vomiting or diarrhea. , PAIN HAS BEEN WORSE AFTER MEALS states she has a migraine headache. Patient with a past medical history of migraine headache and states this pain is typical. Past Medical History Past Medical History Past Medical History Past Medical History: Migraines Additional Past Medical Histor: migraines Past Surgical History: Tubal ligation Smoking Status: Never Smoker Alcohol Use: None Drug Use: None FHX HTN Heme/Onc: No pertinent hx Psych: No pertinent hx Rheumatologic: No pertinent hx Endocrine: No pertinent hx Family History Family History: Hypertension Social History Smoke: No ALCOHOL: none Drugs: None Vitals Vitals Vital Signs Date Time Temp Pulse Resp B/P (MAP) Pulse Ox O2 Delivery O2 Flow Rate FiO2 05/16/20 06:42 97 Room Air 05/16/20 03:00 97.6 64 106/54 (71) 97.6 05/16/20 02:54 20 Physical Exam General: Alert, Oriented X3, Cooperative, No acute distress Heart: Regular rate, Normal S1, Normal S2 Lungs: Clear Abdomen: Soft, Other (RUQ TTP) Extremities: No clubbing, No cyanosis Skin: No rashes, No breakdown Labs LABS PATIENT: CHARLIE SMALLWOOD MACCOUNT: [id number] : 1985 LOCATION: [facility] AGE: 34 SEX: F EXAM STATUS: ADM IN ORD. PHYSICIAN: LIZA ALTMAN APRN REASON: dilated CBD PROCEDURE: MRCP WO CONTRAST MRI abdomen without contrast and MRCP: Clinical indications: Dilated common bile duct seen on limited abdomen ultrasound study dated May 14, 2020. Cholelithiasis. Technique: T1 and T2 weighted MRI sequences of the abdomen was performed in the axial and coronal planes. In phase and out of phase MRI sequences were performed. Using a single shot heavily T2-weighted fast spin-echo and MIP algorithm, 3-D reconstructed MRCP was generated. Findings: MRI abdomen: The liver is homogeneous in appearance. The spleen is homogeneous in appearance. The spleen is not enlarged. The pancreas is homogeneous in appearance. The gallbladder contains multiple gallstones. The largest stone measures 18 mm. No gallbladder wall thickening or pericholecystic free fluid is seen. No adrenal mass is evident. Both kidneys are normal. No focal aneurysmal dilatation of the abdominal aorta is seen. No enlarged abdominal lymphadenopathy is seen. No ascites is seen. MRCP: There is dilatation of the extrahepatic biliary tree measuring up to 9 mm in caliber. There is a low signal round area within the common hepatic duct measuring 5 mm in size seen on series 9 image 17 and series 12 and image 24 which may represent a common hepatic duct stone. However, this is seen on the edge of the common hepatic duct on series 11 and image 5. This could represent a stone adherent to the common hepatic duct wall. No definite stone is seen within the common bile duct. No common bile duct stricture is seen. No abnormal dilatation of the pancreatic duct is seen. IMPRESSION: Cholelithiasis. Dilatation of the extra hepatic biliary tree measuring up to 9 mm. Possible common hepatic duct stone measuring 5 mm. Electronically signed by: Zhou Whyte MD (05/15/2020 5:14 PM) [id number] Assessment and Plan Assessmemt and Plan Problems Medical Problems: (1) Abdominal pain Status: Acute (2) Acute cholecystitis Status: Acute Comment Review of Relevant I have reviewed the following items lisandro (where applicable) has been applied. Labs Laboratory Tests Test 05/14/20 19:44 05/14/20 19:52 05/14/20 20:30 05/15/20 04:15 Urine Collection Type Unknown Urine Color Yellow Urine Clarity Cloudy Urine pH 8.5 (<5.0-8.0) Urine Specific [place] 1.015 (1.000-1.030) Urine Protein Negative mg/dL (NEG-TRACE) Urine Glucose (UA) Negative mg/dL (NEG) Urine Ketones (Stick) Negative mg/dL (NEG) Urine Blood Negative (NEG) Urine Nitrite Negative (NEG) Urine Bilirubin Negative (NEG) Urine Urobilinogen Dipstick 0.2 mg/dL (0.2 mg/dL) Urine Leukocyte Esterase Negative (NEG) Urine RBC 0 /HPF (0-2) Urine WBC 1-4 /HPF (0-4) Urine Squamous Epithelial Cells Mod /LPF Urine Amorphous Sediment Present /HPF Urine Bacteria 0 /HPF (0-FEW) Bedside Urine HCG, Qualitative Hcg negative (Negative) White Blood Count 5.4 x10^3/uL (4.0-11.0) Red Blood Count 4.43 x10^6/uL (3.50-5.40) Hemoglobin 12.7 g/dL (12.0-15.5) Hematocrit 37.9 % (36.0-47.0) Mean Corpuscular Volume 86 fL (79-100) Mean Corpuscular Hemoglobin 29 pg (25-35) Mean Corpuscular Hemoglobin Concent 34 g/dL (31-37) Red Cell Distribution Width 14.8 % (11.5-14.5) Platelet Count 239 x10^3/uL (140-400) Neutrophils (%) (Auto) 70 % (31-73) Lymphocytes (%) (Auto) 22 % (24-48) Monocytes (%) (Auto) 7 % (0-9) Eosinophils (%) (Auto) 0 % (0-3) Basophils (%) (Auto) 1 % (0-3) Neutrophils # (Auto) 3.8 x10^3/uL (1.8-7.7) Lymphocytes # (Auto) 1.2 x10^3/uL (1.0-4.8) Monocytes # (Auto) 0.4 x10^3/uL (0.0-1.1) Eosinophils # (Auto) 0.0 x10^3/uL (0.0-0.7) Basophils # (Auto) 0.0 x10^3/uL (0.0-0.2) Sodium Level 140 mmol/L (136-145) Potassium Level 3.7 mmol/L (3.5-5.1) Chloride Level 102 mmol/L (98-107) Carbon Dioxide Level 30 mmol/L (21-32) Anion Gap 8 (6-14) Blood Urea Nitrogen 8 mg/dL (7-20) Creatinine 0.7 mg/dL (0.6-1.0) Estimated GFR (Cockcroft-Gault) 97.0 BUN/Creatinine Ratio 11 (6-20) Glucose Level 96 mg/dL (70-99) Calcium Level 9.7 mg/dL (8.5-10.1) Total Bilirubin 0.3 mg/dL (0.2-1.0) Aspartate Amino Transf (AST/SGOT) 18 U/L (15-37) Alanine Aminotransferase (ALT/SGPT) 19 U/L (14-59) Alkaline Phosphatase 61 U/L (46-116) Total Protein 7.5 g/dL (6.4-8.2) Albumin 3.8 g/dL (3.4-5.0) Albumin/Globulin Ratio 1.0 (1.0-1.7) Lipase 66 U/L (73-393) Coronavirus (PCR) Detected (Not Detected) SARS-CoV-2 Antigen (Rapid) Negative (NEGATIVE) Medications Current Medications Ketorolac Tromethamine (Toradol 30mg Vial) 30 mg 1X ONCE IVP Last administered on 05/14/20at 21:24; Start 05/14/20 at 21:15; Stop 05/14/20 at 21:16; Status DC Ondansetron HCl (Zofran) 4 mg PRN Q8HRS PRN IV NAUSEA/VOMITING Last admin istered on 05/14/20at 22:43; Start 05/14/20 at 22:15; Stop 05/15/20 at 22:14; Status DC Morphine Sulfate (Morphine Sulfate) 4 mg PRN Q2HR PRN IV PAIN Last administered on 05/15/20at 21:51; Start 05/14/20 at 22:15; Stop 05/15/20 at 22:14; Status DC Piperacillin Sod/ Tazobactam Sod 4.5 gm/Sodium Chloride 100 ml @ 200 mls/hr 1X ONCE IV Last administered on 05/14/20at 22:43; Start 05/14/20 at 22:15; Stop 05/14/20 at 22:44; Status DC Sodium Chloride (Normal Saline Flush) 3 ml QSHIFT PRN IV AFTER MEDS AND BLOOD DRAWS; Start 05/15/20 at 08:30 Sodium Chloride 1,000 ml @ 100 mls/hr Q10H IV Last administered on 05/16/20at 06:21; Start 05/15/20 at 08:19 Zolpidem Tartrate (Ambien) 5 mg PRN QHS PRN PO INSOMNIA; Start 05/15/20 at 08:30 Acetaminophen (Tylenol) 650 mg PRN Q4HRS PRN PO TEMP OVER 100.4F OR MILD PAIN; Start 05/15/20 at 08:30 Al Hydroxide/Mg Hydroxide (Mylanta Plus Xs) 30 ml PRN DAILY PRN PO HEARTBURN / GAS; Start 05/15/20 at 08:30 Clonidine HCl (Catapres) 0.1 mg PRN Q6HRS PRN PO SBP>160 OR DBP>90; Start 05/15/20 at 08:30 Sodium Monofluorophosphate (Fleet Adult) 133 ml PRN DAILY PRN [place] CONSTIPATION; Start 05/15/20 at 08:30 Docusate Sodium (Colace) 100 mg PRN BID PRN PO HARD STOOLS; Start 05/15/20 at 08:30 Albuterol Sulfate (Ventolin Neb Soln) 2.5 mg PRN Q4HRS PRN NEB SHORTNESS OF BREATH; Start 05/15/20 at 08:30 Guaifenesin (Robitussin) 200 mg PRN Q4HRS PRN PO COUGH; Start 05/15/20 at 08:30 Lorazepam (Ativan) 0.5 mg PRN Q4HRS PRN PO ANXIETY / AGITATION; Start 05/15/20 at 08:30 Hydromorphone HCl (Dilaudid) 0.4 mg PRN Q4HRS PRN IVP PAIN Last administered on 05/15/20at 18:37; Start 05/15/20 at 08:45 Fentanyl Citrate (Fentanyl 2ml Vial) 25 mcg PRN Q5MIN PRN IV MILD PAIN 1-3; Start 05/16/20 at 07:00; Stop 05/17/20 at 06:59 Fentanyl Citrate (Fentanyl 2ml Vial) 50 mcg PRN Q5MIN PRN IV MODERATE TO SEVERE PAIN; Start 05/16/20 at 07:00; Stop 05/17/20 at 06:59 Morphine Sulfate (Morphine Sulfate) 1 mg PRN Q10MIN PRN IV SEVERE PAIN 7-10; Start 05/16/20 at 07:00; Stop 05/17/20 at 06:59 Ringer's Solution 1,000 ml @ 30 mls/hr Q24H IV ; Start 05/16/20 at 07:00; Stop 05/16/20 at 18:59 Hydromorphone HCl (Dilaudid) 0.5 mg PRN Q10MIN PRN IV SEV PAIN, Second choice; Start 05/16/20 at 07:00; Stop 05/17/20 at 06:59 Morphine Sulfate (Morphine Sulfate) 4 mg PRN Q2HR PRN IV SEVERE PAIN 7-10 Last administered on 05/16/20at 06:42; Start 05/16/20 at 00:30 Active Scripts Active Reported Acetaminophen 500 Mg Tablet 1 Tab PO PRN Q6HRS PRN 15 Days Ibuprofen 400 Mg Tablet 400 Mg PO PRN Q6HRS PRN Vitals/I & O Vital Sign - Last 24 Hours 05/15/20 05/15/20 05/15/20 05/15/20 08:00 09:35 10:05 11:00 Temp 97.9 97.9 Pulse 58 Resp 18 20 B/P (MAP) 88/48 (61) Pulse Ox 100 100 100 O2 Delivery Room Air Room Air Room Air Room Air 05/15/20 05/15/20 05/15/20 05/15/20 12:35 12:46 15:00 16:53 Temp 98.1 98.1 Pulse 65 Resp 18 18 20 B/P (MAP) 92/49 (63) Pulse Ox 98 98 100 100 O2 Delivery Room Air Room Air Room Air 05/15/20 05/15/20 05/15/20 05/15/20 18:37 19:00 19:07 19:48 Temp 97.8 97.8 Pulse 68 Resp 20 20 20 20 B/P (MAP) 93/49 (64) Pulse Ox 100 94 O2 Delivery Room Air Room Air Room Air Room Air 05/15/20 05/15/20 05/15/20 05/16/20 19:50 21:51 22:38 00:35 Temp 98.5 98.5 Pulse 61 Resp 20 18 18 B/P (MAP) 91/50 (64) Pulse Ox 97 O2 Delivery Room Air Room Air Room Air Room Air 05/16/20 05/16/20 05/16/20 05/16/20 01:05 02:54 03:00 03:24 Temp 97.6 97.6 Pulse 64 Resp 18 20 B/P (MAP) 106/54 (71) Pulse Ox 95 97 O2 Delivery Room Air Room Air Room Air Room Air 05/16/20 06:42 Pulse Ox 97 O2 Delivery Room Air Intake and Output 05/15/20 05/15/20 05/16/20 15:00 23:00 07:00 Intake Total 0 ml Output Total 0 ml Balance 0 ml Justicifation of Admission Dx: Justifications for Admission: Justification of Admission Dx: Yes ADY URIBE MD May 16, 2020 07:18
[2020-05-16 07:30] VITALS: BP 99/50
--- NOTE | 2020-05-16 10:06 | PDOC ---
LIZA ALTMAN [employer] QUALITY TECHNICIAN 05/16/20 1006: SURGICAL PROGRESS NOTE DATE: 05/16/20 TIME: 10:02 Subjective still with RUQ pain, about the same no emesis Vital Signs Vital Signs Date Time Temp Pulse Resp B/P (MAP) Pulse Ox O2 Delivery O2 Flow Rate FiO2 05/16/20 08:53 16 Room Air 05/16/20 07:30 97.3 60 99/50 (66) 100 97.3 I&O Intake and Output 05/16/20 07:00 Intake Total 0 ml Output Total 0 ml Balance 0 ml Intake Oral 0 ml Output Urine Total 0 ml # Voids 1 General: Alert, Oriented X3, Cooperative Abdomen: Soft, Other (TTP RUQ) Labs Laboratory Tests Test 05/14/20 19:44 05/14/20 19:52 05/14/20 20:30 05/15/20 04:15 Urine Collection Type Unknown Urine Color Yellow Urine Clarity Cloudy Urine pH 8.5 (<5.0-8.0) Urine Specific [place] 1.015 (1.000-1.030) Urine Protein Negative mg/dL (NEG-TRACE) Urine Glucose (UA) Negative mg/dL (NEG) Urine Ketones (Stick) Negative mg/dL (NEG) Urine Blood Negative (NEG) Urine Nitrite Negative (NEG) Urine Bilirubin Negative (NEG) Urine Urobilinogen Dipstick 0.2 mg/dL (0.2 mg/dL) Urine Leukocyte Esterase Negative (NEG) Urine RBC 0 /HPF (0-2) Urine WBC 1-4 /HPF (0-4) Urine Squamous Epithelial Cells Mod /LPF Urine Amorphous Sediment Present /HPF Urine Bacteria 0 /HPF (0-FEW) Bedside Urine HCG, Qualitative Hcg negative (Negative) White Blood Count 5.4 x10^3/uL (4.0-11.0) Red Blood Count 4.43 x10^6/uL (3.50-5.40) Hemoglobin 12.7 g/dL (12.0-15.5) Hematocrit 37.9 % (36.0-47.0) Mean Corpuscular Volume 86 fL (79-100) Mean Corpuscular Hemoglobin 29 pg (25-35) Mean Corpuscular Hemoglobin Concent 34 g/dL (31-37) Red Cell Distribution Width 14.8 % (11.5-14.5) Platelet Count 239 x10^3/uL (140-400) Neutrophils (%) (Auto) 70 % (31-73) Lymphocytes (%) (Auto) 22 % (24-48) Monocytes (%) (Auto) 7 % (0-9) Eosinophils (%) (Auto) 0 % (0-3) Basophils (%) (Auto) 1 % (0-3) Neutrophils # (Auto) 3.8 x10^3/uL (1.8-7.7) Lymphocytes # (Auto) 1.2 x10^3/uL (1.0-4.8) Monocytes # (Auto) 0.4 x10^3/uL (0.0-1.1) Eosinophils # (Auto) 0.0 x10^3/uL (0.0-0.7) Basophils # (Auto) 0.0 x10^3/uL (0.0-0.2) Sodium Level 140 mmol/L (136-145) Potassium Level 3.7 mmol/L (3.5-5.1) Chloride Level 102 mmol/L (98-107) Carbon Dioxide Level 30 mmol/L (21-32) Anion Gap 8 (6-14) Blood Urea Nitrogen 8 mg/dL (7-20) Creatinine 0.7 mg/dL (0.6-1.0) Estimated GFR (Cockcroft-Gault) 97.0 BUN/Creatinine Ratio 11 (6-20) Glucose Level 96 mg/dL (70-99) Calcium Level 9.7 mg/dL (8.5-10.1) Total Bilirubin 0.3 mg/dL (0.2-1.0) Aspartate Amino Transf (AST/SGOT) 18 U/L (15-37) Alanine Aminotransferase (ALT/SGPT) 19 U/L (14-59) Alkaline Phosphatase 61 U/L (46-116) Total Protein 7.5 g/dL (6.4-8.2) Albumin 3.8 g/dL (3.4-5.0) Albumin/Globulin Ratio 1.0 (1.0-1.7) Lipase 66 U/L (73-393) Coronavirus (PCR) Detected (Not Detected) SARS-CoV-2 Antigen (Rapid) Negative (NEGATIVE) Problem List Problems Medical Problems: (1) Abdominal pain Status: Acute (2) Acute cholecystitis Status: Acute Assessment/Plan now covid + MRCP with possible CBD stone will check labs, start abx if sable may need to delay rosalina for 3 weeks, low fat diet and abx Justicifation of Admission Dx: Justifications for Admission: Justification of Admission Dx: Yes SULEMAN LEROY MD 05/16/20 1430: SURGICAL PROGRESS NOTE Assessment/Plan Pt seen and examined. Agree with Ms. Altman's note Pt with c/o pain, but maybe somewhat improved. [place] diet abd soft, mild TTP RUQ pt covid +, pt's with increased morbidity. Would favor d/c home on pain meds and abx and plan surgery in 3 weeks. LIZA ALTMAN APRN May 16, 2020 10:06 SULEMAN LEROY MD May 16, 2020 14:30
--- NOTE | 2020-05-16 10:50 | PDOC ---
Date of Service: DATE: 05/16/20 TIME: 10:44 Subjective: Subjective: RUQ pain. Objective: Vital Signs: Vital Signs Date Time Temp Pulse Resp B/P (MAP) Pulse Ox O2 Delivery O2 Flow Rate FiO2 05/16/20 08:53 16 Room Air 05/16/20 07:30 97.3 60 99/50 (66) 100 97.3 Imaging: MRCP 05/15 MRI abdomen: The liver is homogeneous in appearance. The spleen is homogeneous in appearance. The spleen is not enlarged. The pancreas is homogeneous in appearance. The gallbladder contains multiple gallstones. The largest stone measures 18 mm. No gallbladder wall thickening or pericholecystic free fluid is seen. No adrenal mass is evident. Both kidneys are normal. No focal aneurysmal dilatation of the abdominal aorta is seen. No enlarged abdominal lymphadenopathy is seen. No ascites is seen. MRCP: There is dilatation of the extrahepatic biliary tree measuring up to 9 mm in caliber. There is a low signal round area within the common hepatic duct measuring 5 mm in size seen on series 9 image 17 and series 12 and image 24 which may represent a common hepatic duct stone. However, this is seen on the edge of the common hepatic duct on series 11 and image 5. This could represent a stone adherent to the common hepatic duct wall. No definite stone is seen within the common bile duct. No common bile duct stricture is seen. No abnormal dilatation of the pancreatic duct is seen. IMPRESSION: Cholelithiasis. Dilatation of the extra hepatic biliary tree measuring up to 9 mm. Possible common hepatic duct stone measuring 5 mm. PE: GEN: in COVID isolation LUNGS: CTAB HEART: RRR ABD: RUQ tenderness NEURO/PSYCH: A & O 3 A/P: Abd pain Cholelithiasis, ?common hepatic duct stone - LFTs normal yesterday COVID+ -- MRCP noted as above. Atbx started per surgery, recheck of labs pending. Difficult situation w/ + COVID - may need to delay surgery. Justicifation of Admission Dx: Justifications for Admission: Justification of Admission Dx: Yes EVERETT REAGAN May 16, 2020 10:50
[2020-05-16 11:36] VITALS: BP 95/55
[2020-05-16] MEDS: PIPERACILLIN/TAZOBACTAM 3.375 GM in IV NORMAL SALINE 50ML 50 ML IV SCH ×2 (11:45→17:15)
[2020-05-16 12:13] LABS: BASO % 1 % (0-3); EOS % 0 % (0-3); HEMATOCRIT 34.9 % (36.0-47.0); HEMOGLOBIN 11.8 g/dL (12.0-15.5); LYMPH # 1.1 x10^3/uL (1.0-4.8); LYMPH % 29 % (24-48); MEAN CORPUSCULAR HEMOGLOBIN 29 pg (25-35); MEAN CORPUSCULAR HGB CONC 34 g/dL (31-37); MEAN CORPUSCULAR VOLUME 87 fL (79-100); MONO # 0.3 x10^3/uL (0.0-1.1); MONO % 7 % (0-9); NEUT # 2.4 x10^3/uL (1.8-7.7); NEUT % 64 % (31-73); PLATELET COUNT 193 x10^3/uL (140-400); RED BLOOD COUNT 4.02 x10^6/uL (3.50-5.40); RED CELL DISTRIBUTION WIDTH 15.2 % (11.5-14.5); WHITE BLOOD COUNT 3.8 x10^3/uL (4.0-11.0)
[2020-05-16 12:36] LABS: ALBUMIN 3.2 g/dL (3.4-5.0); ALBUMIN/GLOBULIN RATIO 0.9 (1.0-1.7); CALCIUM 8.3 mg/dL (8.5-10.1); CREATININE 0.7 mg/dL (0.6-1.0); POTASSIUM 3.7 mmol/L (3.5-5.1); TOTAL BILIRUBIN 0.4 mg/dL (0.2-1.0); TOTAL PROTEIN 6.6 g/dL (6.4-8.2)
[2020-05-16 15:00] VITALS: BP 101/61
--- NOTE | 2020-05-16 16:24 | RAD ---
CHEST AP ONLY 05/16/2020 2:24 PM INDICATION: Covid 19 COMPARISON: None available TECHNIQUE: Portable frontal view of the chest is provided. FINDINGS: The cardiomediastinal silhouette is within normal limits. Lungs are clear. There are no significant pleural effusions. There is no pulmonary vascular congestion. No pneumothorax. No suspicious osseous abnormality. IMPRESSION: There is no acute cardiopulmonary process. Electronically signed by: Kathy Knott MD (05/16/2020 4:22 PM) [id number]
--- NOTE | 2020-05-16 17:07 | NUR ---
SW following. Spoke with RN and reviewed chart. Pt is now a full admit. Pt's rapid COVID test was negative but pt is now COVID positive. Pt on IV Zosyn. Pt on room air and a low fat diet. SW following as needed.
[2020-05-16 19:48] VITALS: BP 103/55
[2020-05-16 22:31] VITALS: BP 115/63
[2020-05-17] MEDS: MORPHINE SULFATE 4 MG/ML VIAL. IV PRN ×4 (00:34→08:28)
[2020-05-17] MEDS: PIPERACILLIN/TAZOBACTAM 3.375 GM in IV NORMAL SALINE 50ML 50 ML IV SCH ×3 (00:35→12:00)
[2020-05-17] MEDS: IV NORMAL SALINE 1000ML BAG 1,000 ML IV SCH (00:36)
[2020-05-17 03:15] VITALS: BP 95/49
[2020-05-17 04:25] LABS: BASO % 0 % (0-3); EOS % 0 % (0-3); HEMATOCRIT 34.9 % (36.0-47.0); HEMOGLOBIN 11.5 g/dL (12.0-15.5); LYMPH # 1.7 x10^3/uL (1.0-4.8); LYMPH % 31 % (24-48); MEAN CORPUSCULAR HEMOGLOBIN 29 pg (25-35); MEAN CORPUSCULAR HGB CONC 33 g/dL (31-37); MEAN CORPUSCULAR VOLUME 87 fL (79-100); MONO # 0.4 x10^3/uL (0.0-1.1); MONO % 7 % (0-9); NEUT # 3.3 x10^3/uL (1.8-7.7); NEUT % 62 % (31-73); PLATELET COUNT 209 x10^3/uL (140-400); RED CELL DISTRIBUTION WIDTH 14.8 % (11.5-14.5); WHITE BLOOD COUNT 5.4 x10^3/uL (4.0-11.0)
[2020-05-17 07:51] VITALS: BP 96/52
--- NOTE | 2020-05-17 08:49 | PDOC ---
PROGRESS NOTES Date of Service: DATE: 05/17/20 TIME: 08:49 Chief Complaint Chief Complaint VTE Prophylaxis Ordered VTE Prophylaxis Devices: Yes VTE Pharmacological Prophylaxi: Yes Assessment/Plan Assessment/Plan Impression: SYMPTOMATIC Gallstones Gallbladder calculi with findings of wall echo shadow complex. Sonographic Carney sign noted. Common bile duct is distended ///no intrahepatic biliary dilatation. hx common migrane headaches neg covid screen in ER pos pos on confirmation Dilatation of the extra hepatic biliary tree measuring up to 9 mm. Possible common hepatic duct stone measuring 5 mm. plan admit gen surgery consult npo iv fluid support iv pain control prn dvt prophylaxis, scd's lovenox 60 mg sq bid post surgery MRCP with possible CBD stone PULM CONSULT pending PCXR Ferritin D/W RN on RA HOME IF OK WITH PULM 29 min pt exam, chart review, > 50% of time spent with exam, chart review, pt care coordination d/w rn History of Present Illness History of Present Illness Identification/Chief Complaint Chief Complaint seen in ER with RUQ discomfort 34 year oldylg-[id number] female past medical history of migraines presents with a chief complaint of epigastric right upper quadrant abdominal pain. has had abdominal pain x2 days progressively coming worse., associated nausea without vomiting or diarrhea. , PAIN HAS BEEN WORSE AFTER MEALS states she has a migraine headache. Patient with a past medical history of migraine headache and states this pain is typical. Past Medical History Past Medical History Past Medical History Past Medical History: Migraines Additional Past Medical Histor: migraines Past Surgical History: Tubal ligation Smoking Status: Never Smoker Alcohol Use: None Drug Use: None FHX HTN Heme/Onc: No pertinent hx Psych: No pertinent hx Rheumatologic: No pertinent hx Endocrine: No pertinent hx Family History Family History: Hypertension Social History Smoke: No ALCOHOL: none Drugs: None Vitals Vitals Vital Signs Date Time Temp Pulse Resp B/P (MAP) Pulse Ox O2 Delivery O2 Flow Rate FiO2 05/17/20 08:28 17 98 Room Air 05/17/20 07:51 97.0 74 96/52 (67) 97.0 Physical Exam General: Alert, Oriented X3, Cooperative, No acute distress Heart: Regular rate, Normal S1, Normal S2 Lungs: Clear Abdomen: Normal bowel sounds, Soft, Other (TTP RUQ) Extremities: No clubbing, No cyanosis, No edema Skin: No rashes, No breakdown Labs LABS Laboratory Tests Test 05/16/20 11:20 05/17/20 04:00 White Blood Count 3.8 x10^3/uL (4.0-11.0) 5.4 x10^3/uL (4.0-11.0) Red Blood Count 4.02 x10^6/uL (3.50-5.40) 4.00 x10^6/uL (3.50-5.40) Hemoglobin 11.8 g/dL (12.0-15.5) 11.5 g/dL (12.0-15.5) Hematocrit 34.9 % (36.0-47.0) 34.9 % (36.0-47.0) Mean Corpuscular Volume 87 fL (79-100) 87 fL (79-100) Mean Corpuscular Hemoglobin 29 pg (25-35) 29 pg (25-35) Mean Corpuscular Hemoglobin Concent 34 g/dL (31-37) 33 g/dL (31-37) Red Cell Distribution Width 15.2 % (11.5-14.5) 14.8 % (11.5-14.5) Platelet Count 193 x10^3/uL (140-400) 209 x10^3/uL (140-400) Neutrophils (%) (Auto) 64 % (31-73) 62 % (31-73) Lymphocytes (%) (Auto) 29 % (24-48) 31 % (24-48) Monocytes (%) (Auto) 7 % (0-9) 7 % (0-9) Eosinophils (%) (Auto) 0 % (0-3) 0 % (0-3) Basophils (%) (Auto) 1 % (0-3) 0 % (0-3) Neutrophils # (Auto) 2.4 x10^3/uL (1.8-7.7) 3.3 x10^3/uL (1.8-7.7) Lymphocytes # (Auto) 1.1 x10^3/uL (1.0-4.8) 1.7 x10^3/uL (1.0-4.8) Monocytes # (Auto) 0.3 x10^3/uL (0.0-1.1) 0.4 x10^3/uL (0.0-1.1) Eosinophils # (Auto) 0.0 x10^3/uL (0.0-0.7) 0.0 x10^3/uL (0.0-0.7) Basophils # (Auto) 0.0 x10^3/uL (0.0-0.2) 0.0 x10^3/uL (0.0-0.2) Sodium Level 140 mmol/L (136-145) Potassium Level 3.7 mmol/L (3.5-5.1) Chloride Level 107 mmol/L (98-107) Carbon Dioxide Level 27 mmol/L (21-32) Anion Gap 6 (6-14) Blood Urea Nitrogen 6 mg/dL (7-20) Creatinine 0.7 mg/dL (0.6-1.0) Estimated GFR (Cockcroft-Gault) 97.0 BUN/Creatinine Ratio 9 (6-20) Glucose Level 92 mg/dL (70-99) Calcium Level 8.3 mg/dL (8.5-10.1) Ferritin 15 ng/mL (8-252) Total Bilirubin 0.4 mg/dL (0.2-1.0) Aspartate Amino Transf (AST/SGOT) 25 U/L (15-37) Alanine Aminotransferase (ALT/SGPT) 38 U/L (14-59) Alkaline Phosphatase 46 U/L (46-116) Total Protein 6.6 g/dL (6.4-8.2) Albumin 3.2 g/dL (3.4-5.0) Albumin/Globulin Ratio 0.9 (1.0-1.7) Assessment and Plan Assessmemt and Plan Problems Medical Problems: (1) Abdominal pain Status: Acute (2) Acute cholecystitis Status: Acute Comment Review of Relevant I have reviewed the following items lisandro (where applicable) has been applied. Labs Laboratory Tests Test 05/16/20 11:20 05/17/20 04:00 White Blood Count 3.8 x10^3/uL (4.0-11.0) 5.4 x10^3/uL (4.0-11.0) Red Blood Count 4.02 x10^6/uL (3.50-5.40) 4.00 x10^6/uL (3.50-5.40) Hemoglobin 11.8 g/dL (12.0-15.5) 11.5 g/dL (12.0-15.5) Hematocrit 34.9 % (36.0-47.0) 34.9 % (36.0-47.0) Mean Corpuscular Volume 87 fL (79-100) 87 fL (79-100) Mean Corpuscular Hemoglobin 29 pg (25-35) 29 pg (25-35) Mean Corpuscular Hemoglobin Concent 34 g/dL (31-37) 33 g/dL (31-37) Red Cell Distribution Width 15.2 % (11.5-14.5) 14.8 % (11.5-14.5) Platelet Count 193 x10^3/uL (140-400) 209 x10^3/uL (140-400) Neutrophils (%) (Auto) 64 % (31-73) 62 % (31-73) Lymphocytes (%) (Auto) 29 % (24-48) 31 % (24-48) Monocytes (%) (Auto) 7 % (0-9) 7 % (0-9) Eosinophils (%) (Auto) 0 % (0-3) 0 % (0-3) Basophils (%) (Auto) 1 % (0-3) 0 % (0-3) Neutrophils # (Auto) 2.4 x10^3/uL (1.8-7.7) 3.3 x10^3/uL (1.8-7.7) Lymphocytes # (Auto) 1.1 x10^3/uL (1.0-4.8) 1.7 x10^3/uL (1.0-4.8) Monocytes # (Auto) 0.3 x10^3/uL (0.0-1.1) 0.4 x10^3/uL (0.0-1.1) Eosinophils # (Auto) 0.0 x10^3/uL (0.0-0.7) 0.0 x10^3/uL (0.0-0.7) Basophils # (Auto) 0.0 x10^3/uL (0.0-0.2) 0.0 x10^3/uL (0.0-0.2) Sodium Level 140 mmol/L (136-145) Potassium Level 3.7 mmol/L (3.5-5.1) Chloride Level 107 mmol/L (98-107) Carbon Dioxide Level 27 mmol/L (21-32) Anion Gap 6 (6-14) Blood Urea Nitrogen 6 mg/dL (7-20) Creatinine 0.7 mg/dL (0.6-1.0) Estimated GFR (Cockcroft-Gault) 97.0 BUN/Creatinine Ratio 9 (6-20) Glucose Level 92 mg/dL (70-99) Calcium Level 8.3 mg/dL (8.5-10.1) Ferritin 15 ng/mL (8-252) Total Bilirubin 0.4 mg/dL (0.2-1.0) Aspartate Amino Transf (AST/SGOT) 25 U/L (15-37) Alanine Aminotransferase (ALT/SGPT) 38 U/L (14-59) Alkaline Phosphatase 46 U/L (46-116) Total Protein 6.6 g/dL (6.4-8.2) Albumin 3.2 g/dL (3.4-5.0) Albumin/Globulin Ratio 0.9 (1.0-1.7) Laboratory Tests Test 05/16/20 11:20 05/17/20 04:00 White Blood Count 3.8 x10^3/uL (4.0-11.0) 5.4 x10^3/uL (4.0-11.0) Red Blood Count 4.02 x10^6/uL (3.50-5.40) 4.00 x10^6/uL (3.50-5.40) Hemoglobin 11.8 g/dL (12.0-15.5) 11.5 g/dL (12.0-15.5) Hematocrit 34.9 % (36.0-47.0) 34.9 % (36.0-47.0) Mean Corpuscular Volume 87 fL (79-100) 87 fL (79-100) Mean Corpuscular Hemoglobin 29 pg (25-35) 29 pg (25-35) Mean Corpuscular Hemoglobin Concent 34 g/dL (31-37) 33 g/dL (31-37) Red Cell Distribution Width 15.2 % (11.5-14.5) 14.8 % (11.5-14.5) Platelet Count 193 x10^3/uL (140-400) 209 x10^3/uL (140-400) Neutrophils (%) (Auto) 64 % (31-73) 62 % (31-73) Lymphocytes (%) (Auto) 29 % (24-48) 31 % (24-48) Monocytes (%) (Auto) 7 % (0-9) 7 % (0-9) Eosinophils (%) (Auto) 0 % (0-3) 0 % (0-3) Basophils (%) (Auto) 1 % (0-3) 0 % (0-3) Neutrophils # (Auto) 2.4 x10^3/uL (1.8-7.7) 3.3 x10^3/uL (1.8-7.7) Lymphocytes # (Auto) 1.1 x10^3/uL (1.0-4.8) 1.7 x10^3/uL (1.0-4.8) Monocytes # (Auto) 0.3 x10^3/uL (0.0-1.1) 0.4 x10^3/uL (0.0-1.1) Eosinophils # (Auto) 0.0 x10^3/uL (0.0-0.7) 0.0 x10^3/uL (0.0-0.7) Basophils # (Auto) 0.0 x10^3/uL (0.0-0.2) 0.0 x10^3/uL (0.0-0.2) Sodium Level 140 mmol/L (136-145) Potassium Level 3.7 mmol/L (3.5-5.1) Chloride Level 107 mmol/L (98-107) Carbon Dioxide Level 27 mmol/L (21-32) Anion Gap 6 (6-14) Blood Urea Nitrogen 6 mg/dL (7-20) Creatinine 0.7 mg/dL (0.6-1.0) Estimated GFR (Cockcroft-Gault) 97.0 BUN/Creatinine Ratio 9 (6-20) Glucose Level 92 mg/dL (70-99) Calcium Level 8.3 mg/dL (8.5-10.1) Ferritin 15 ng/mL (8-252) Total Bilirubin 0.4 mg/dL (0.2-1.0) Aspartate Amino Transf (AST/SGOT) 25 U/L (15-37) Alanine Aminotransferase (ALT/SGPT) 38 U/L (14-59) Alkaline Phosphatase 46 U/L (46-116) Total Protein 6.6 g/dL (6.4-8.2) Albumin 3.2 g/dL (3.4-5.0) Albumin/Globulin Ratio 0.9 (1.0-1.7) Medications Current Medications Ketorolac Tromethamine (Toradol 30mg Vial) 30 mg 1X ONCE IVP Last administered on 05/14/20at 21:24; Start 05/14/20 at 21:15; Stop 05/14/20 at 21:16; Status DC Ondansetron HCl (Zofran) 4 mg PRN Q8HRS PRN IV NAUSEA/VOMITING Last administered on 05/14/20at 22:43; Start 05/14/20 at 22:15; Stop 05/15/20 at 22:14; Status DC Morphine Sulfate (Morphine Sulfate) 4 mg PRN Q2HR PRN IV PAIN Last administered on 05/15/20at 21:51; Start 05/14/20 at 22:15; Stop 05/15/20 at 22:14; Status DC Piperacillin Sod/ Tazobactam Sod 4.5 gm/Sodium Chloride 100 ml @ 200 mls/hr 1X ONCE IV Last administered on 05/14/20at 22:43; Start 05/14/20 at 22:15; Stop 05/14/20 at 22:44; Status DC Sodium Chloride (Normal Saline Flush) 3 ml QSHIFT PRN IV AFTER MEDS AND BLOOD DRAWS; Start 05/15/20 at 08:30 Sodium Chloride 1,000 ml @ 100 mls/hr Q10H IV Last administered on 05/17/20at 00:36; Start 05/15/20 at 08:19 Zolpidem Tartrate (Ambien) 5 mg PRN QHS PRN PO INSOMNIA; Start 05/15/20 at 08:30 Acetaminophen (Tylenol) 650 mg PRN Q4HRS PRN PO TEMP OVER 100.4F OR MILD PAIN; Start 05/15/20 at 08:30 Al Hydroxide/Mg Hydroxide (Mylanta Plus Xs) 30 ml PRN DAILY PRN PO HEARTBURN / GAS; Start 05/15/20 at 08:30 Clonidine HCl (Catapres) 0.1 mg PRN Q6HRS PRN PO SBP>160 OR DBP>90; Start 05/15/20 at 08:30 Sodium Monofluorophosphate (Fleet Adult) 133 ml PRN DAILY PRN CO CONSTIPATION; Start 05/15/20 at 08:30 Docusate Sodium (Colace) 100 mg PRN BID PRN PO HARD STOOLS; Start 05/15/20 at 08:30 Albuterol Sulfate (Ventolin Neb Soln) 2.5 mg PRN Q4HRS PRN NEB SHORTNESS OF BREATH; Start 05/15/20 at 08:30 Guaifenesin (Robitussin) 200 mg PRN Q4HRS PRN PO COUGH; Start 05/15/20 at 08:30 Lorazepam (Ativan) 0.5 mg PRN Q4HRS PRN PO ANXIETY / AGITATION; Start 05/15/20 at 08:30 Hydromorphone HCl (Dilaudid) 0.4 mg PRN Q4HRS PRN IVP PAIN Last administered on 05/15/20at 18:37; Start 05/15/20 at 08:45 Fentanyl Citrate (Fentanyl 2ml Vial) 25 mcg PRN Q5MIN PRN IV MILD PAIN 1-3; Start 05/16/20 at 07:00; Stop 05/16/20 at 17:03; Status DC Fentanyl Citrate (Fentanyl 2ml Vial) 50 mcg PRN Q5MIN PRN IV MODERATE TO SEVERE PAIN; Start 05/16/20 at 07:00; Stop 05/16/20 at 17:03; Status DC Morphine Sulfate (Morphine Sulfate) 1 mg PRN Q10MIN PRN IV SEVERE PAIN 7-10; Start 05/16/20 at 07:00; Stop 05/16/20 at 17:03; Status DC Ringer's Solution 1,000 ml @ 30 mls/hr Q24H IV ; Start 05/16/20 at 07:00; Stop 05/16/20 at 17:03; Status DC Hydromorphone HCl (Dilaudid) 0.5 mg PRN Q10MIN PRN IV SEV PAIN, Second choice; Start 05/16/20 at 07:00; Stop 05/16/20 at 17:03; Status DC Morphine Sulfate (Morphine Sulfate) 4 mg PRN Q2HR PRN IV SEVERE PAIN 7-10 Last administered on 05/17/20at 08:28; Start 05/16/20 at 00:30 Piperacillin Sod/ Tazobactam Sod 3.375 gm/Sodium Chloride 50 ml @ 100 mls/hr Q6HRS IV Last administered on 05/17/20at 06:37; Start 05/16/20 at 11:00 Active Scripts Active Reported Acetaminophen 500 Mg Tablet 1 Tab PO PRN Q6HRS PRN 15 Days Ibuprofen 400 Mg Tablet 400 Mg PO PRN Q6HRS PRN Vitals/I & O Vital Sign - Last 24 Hours 05/16/20 05/16/20 05/16/20 05/16/20 08:53 09:23 11:36 11:44 Temp 98.1 98.1 Pulse 62 Resp 16 16 16 16 B/P (MAP) 95/55 (68) Pulse Ox 100 O2 Delivery Room Air Room Air Room Air Room Air 05/16/20 05/16/20 05/16/20 05/16/20 14:48 15:00 17:15 19:48 Temp 97.8 97.7 97.8 97.7 Pulse 65 69 Resp 16 16 16 16 B/P (MAP) 101/61 (74) 103/55 (71) Pulse Ox 100 100 O2 Delivery Room Air Room Air Room Air Room Air 05/16/20 05/16/20 05/16/20 05/16/20 19:50 20:00 20:20 22:30 Resp 18 18 Pulse Ox 100 O2 Delivery Room Air Room Air Room Air Room Air 05/16/20 05/16/20 05/17/20 05/17/20 22:31 23:00 00:34 01:04 Temp 97.3 97.3 Pulse 65 Resp 16 19 19 19 B/P (MAP) 115/63 (80) Pulse Ox 100 O2 Delivery Room Air Room Air Room Air Room Air 05/17/20 05/17/20 05/17/20 05/17/20 03:15 04:09 06:39 07:09 Temp 97.8 97.8 Pulse 67 Resp 16 19 19 16 B/P (MAP) 95/49 (64) Pulse Ox 100 100 O2 Delivery Room Air Room Air Room Air Room Air 05/17/20 05/17/20 07:51 08:28 Temp 97.0 97.0 Pulse 74 Resp 20 17 B/P (MAP) 96/52 (67) Pulse Ox 98 98 O2 Delivery Room Air Room Air Intake and Output 05/16/20 05/16/20 05/17/20 15:00 23:00 07:00 Intake Total 240 ml 300 ml Balance 240 ml 300 ml Justicifation of Admission Dx: Justifications for Admission: Justification of Admission Dx: Yes ADY URIBE MD May 17, 2020 08:49
--- NOTE | 2020-05-17 09:43 | NUR ---
SCARLETT following. Spoke with RN and reviewed chart. Pt will likely discharge home self-care today after seen by pulmonary. Pt remains on IV Zosyn at this time but will discharge on oral medications. Pt on room air. Addendum: 05/17/20 at 1404 by BARBARA PANTOJA SCARLETT did call into pt's room and she stated no needs at discharge. Pt to discharge on oral medications. No further SW needs at this time.
[2020-05-17] MEDS ORDERED: HYDR-3164 PO (10:33)
[2020-05-17] MEDS ORDERED: AMOX1TAB61 PO (10:33)
[2020-05-17] MEDS ORDERED: DOCU-153 PO (10:33)
--- NOTE | 2020-05-17 10:36 | PDOC ---
SURGICAL PROGRESS NOTE DATE: 05/17/20 TIME: 10:35 Subjective pain managable able to eat Vital Signs Vital Signs Date Time Temp Pulse Resp B/P (MAP) Pulse Ox O2 Delivery O2 Flow Rate FiO2 05/17/20 08:58 98 Room Air 05/17/20 08:28 17 05/17/20 07:51 97.0 74 96/52 (67) 97.0 I&O Intake and Output 05/17/20 07:00 Intake Total 540 ml Balance 540 ml Intake Oral 540 ml # Voids 2 General: Alert, Oriented X3, Cooperative Abdomen: Soft, Other (ttp RUQ) Labs Laboratory Tests Test 05/16/20 11:20 05/17/20 04:00 White Blood Count 3.8 x10^3/uL (4.0-11.0) 5.4 x10^3/uL (4.0-11.0) Red Blood Count 4.02 x10^6/uL (3.50-5.40) 4.00 x10^6/uL (3.50-5.40) Hemoglobin 11.8 g/dL (12.0-15.5) 11.5 g/dL (12.0-15.5) Hematocrit 34.9 % (36.0-47.0) 34.9 % (36.0-47.0) Mean Corpuscular Volume 87 fL (79-100) 87 fL (79-100) Mean Corpuscular Hemoglobin 29 pg (25-35) 29 pg (25-35) Mean Corpuscular Hemoglobin Concent 34 g/dL (31-37) 33 g/dL (31-37) Red Cell Distribution Width 15.2 % (11.5-14.5) 14.8 % (11.5-14.5) Platelet Count 193 x10^3/uL (140-400) 209 x10^3/uL (140-400) Neutrophils (%) (Auto) 64 % (31-73) 62 % (31-73) Lymphocytes (%) (Auto) 29 % (24-48) 31 % (24-48) Monocytes (%) (Auto) 7 % (0-9) 7 % (0-9) Eosinophils (%) (Auto) 0 % (0-3) 0 % (0-3) Basophils (%) (Auto) 1 % (0-3) 0 % (0-3) Neutrophils # (Auto) 2.4 x10^3/uL (1.8-7.7) 3.3 x10^3/uL (1.8-7.7) Lymphocytes # (Auto) 1.1 x10^3/uL (1.0-4.8) 1.7 x10^3/uL (1.0-4.8) Monocytes # (Auto) 0.3 x10^3/uL (0.0-1.1) 0.4 x10^3/uL (0.0-1.1) Eosinophils # (Auto) 0.0 x10^3/uL (0.0-0.7) 0.0 x10^3/uL (0.0-0.7) Basophils # (Auto) 0.0 x10^3/uL (0.0-0.2) 0.0 x10^3/uL (0.0-0.2) Sodium Level 140 mmol/L (136-145) Potassium Level 3.7 mmol/L (3.5-5.1) Chloride Level 107 mmol/L (98-107) Carbon Dioxide Level 27 mmol/L (21-32) Anion Gap 6 (6-14) Blood Urea Nitrogen 6 mg/dL (7-20) Creatinine 0.7 mg/dL (0.6-1.0) Estimated GFR (Cockcroft-Gault) 97.0 BUN/Creatinine Ratio 9 (6-20) Glucose Level 92 mg/dL (70-99) Calcium Level 8.3 mg/dL (8.5-10.1) Ferritin 15 ng/mL (8-252) Total Bilirubin 0.4 mg/dL (0.2-1.0) Aspartate Amino Transf (AST/SGOT) 25 U/L (15-37) Alanine Aminotransferase (ALT/SGPT) 38 U/L (14-59) Alkaline Phosphatase 46 U/L (46-116) Total Protein 6.6 g/dL (6.4-8.2) Albumin 3.2 g/dL (3.4-5.0) Albumin/Globulin Ratio 0.9 (1.0-1.7) Laboratory Tests Test 05/16/20 11:20 05/17/20 04:00 White Blood Count 3.8 x10^3/uL (4.0-11.0) 5.4 x10^3/uL (4.0-11.0) Red Blood Count 4.02 x10^6/uL (3.50-5.40) 4.00 x10^6/uL (3.50-5.40) Hemoglobin 11.8 g/dL (12.0-15.5) 11.5 g/dL (12.0-15.5) Hematocrit 34.9 % (36.0-47.0) 34.9 % (36.0-47.0) Mean Corpuscular Volume 87 fL (79-100) 87 fL (79-100) Mean Corpuscular Hemoglobin 29 pg (25-35) 29 pg (25-35) Mean Corpuscular Hemoglobin Concent 34 g/dL (31-37) 33 g/dL (31-37) Red Cell Distribution Width 15.2 % (11.5-14.5) 14.8 % (11.5-14.5) Platelet Count 193 x10^3/uL (140-400) 209 x10^3/uL (140-400) Neutrophils (%) (Auto) 64 % (31-73) 62 % (31-73) Lymphocytes (%) (Auto) 29 % (24-48) 31 % (24-48) Monocytes (%) (Auto) 7 % (0-9) 7 % (0-9) Eosinophils (%) (Auto) 0 % (0-3) 0 % (0-3) Basophils (%) (Auto) 1 % (0-3) 0 % (0-3) Neutrophils # (Auto) 2.4 x10^3/uL (1.8-7.7) 3.3 x10^3/uL (1.8-7.7) Lymphocytes # (Auto) 1.1 x10^3/uL (1.0-4.8) 1.7 x10^3/uL (1.0-4.8) Monocytes # (Auto) 0.3 x10^3/uL (0.0-1.1) 0.4 x10^3/uL (0.0-1.1) Eosinophils # (Auto) 0.0 x10^3/uL (0.0-0.7) 0.0 x10^3/uL (0.0-0.7) Basophils # (Auto) 0.0 x10^3/uL (0.0-0.2) 0.0 x10^3/uL (0.0-0.2) Sodium Level 140 mmol/L (136-145) Potassium Level 3.7 mmol/L (3.5-5.1) Chloride Level 107 mmol/L (98-107) Carbon Dioxide Level 27 mmol/L (21-32) Anion Gap 6 (6-14) Blood Urea Nitrogen 6 mg/dL (7-20) Creatinine 0.7 mg/dL (0.6-1.0) Estimated GFR (Cockcroft-Gault) 97.0 BUN/Creatinine Ratio 9 (6-20) Glucose Level 92 mg/dL (70-99) Calcium Level 8.3 mg/dL (8.5-10.1) Ferritin 15 ng/mL (8-252) Total Bilirubin 0.4 mg/dL (0.2-1.0) Aspartate Amino Transf (AST/SGOT) 25 U/L (15-37) Alanine Aminotransferase (ALT/SGPT) 38 U/L (14-59) Alkaline Phosphatase 46 U/L (46-116) Total Protein 6.6 g/dL (6.4-8.2) Albumin 3.2 g/dL (3.4-5.0) Albumin/Globulin Ratio 0.9 (1.0-1.7) Problem List Problems Medical Problems: (1) Abdominal pain Status: Acute (2) Acute cholecystitis Status: Acute Assessment/Plan home on oral abx, low fat diet office will call to schedule [facility] for 3 weeks Justicifation of Admission Dx: Justifications for Admission: Justification of Admission Dx: Yes LIZA ALTMAN [employer] May 17, 2020 10:36
[2020-05-17] MEDS ORDERED: HYDROcodone/APAP 5/325MG 1 TAB TABLET PO PRN (10:45)
[2020-05-17 11:00] VITALS: BP 109/51
--- NOTE | 2020-05-17 12:24 | PDOC ---
Date of Service: DATE: 05/17/20 TIME: 12:21 Subjective: Subjective: Still w/ some pain but tolerating diet. Objective: Vital Signs: Vital Signs Date Time Temp Pulse Resp B/P (MAP) Pulse Ox O2 Delivery O2 Flow Rate FiO2 05/17/20 11:50 15 100 Room Air 05/17/20 11:00 97.8 75 109/51 (70) 97.8 Labs: Laboratory Tests Test 05/17/20 04:00 White Blood Count 5.4 x10^3/uL Red Blood Count 4.00 x10^6/uL Hemoglobin 11.5 g/dL Hematocrit 34.9 % Mean Corpuscular Volume 87 fL Mean Corpuscular Hemoglobin 29 pg Mean Corpuscular Hemoglobin Concent 33 g/dL Red Cell Distribution Width 14.8 % Platelet Count 209 x10^3/uL Neutrophils (%) (Auto) 62 % Lymphocytes (%) (Auto) 31 % Monocytes (%) (Auto) 7 % Eosinophils (%) (Auto) 0 % Basophils (%) (Auto) 0 % Neutrophils # (Auto) 3.3 x10^3/uL Lymphocytes # (Auto) 1.7 x10^3/uL Monocytes # (Auto) 0.4 x10^3/uL Eosinophils # (Auto) 0.0 x10^3/uL Basophils # (Auto) 0.0 x10^3/uL PE: GEN: NAD LUNGS: CTAB HEART: RRR ABD: RUQ tender NEURO/PSYCH: A & O 3 A/P: RUQ pain Cholelithiasis, ?common hepatic duct stone - LFTs normal x2 COVID+ -- Plans for outpt [facility] in ~3 weeks. DC per primary/surgery. Follow-up w/ GI PRN. No stool charted - careful for constipation if to continue narcs - use Miralax, etc. PRN. Justicifation of Admission Dx: Justifications for Admission: Justification of Admission Dx: Yes EVERETT REAGAN May 17, 2020 12:24
[2020-05-17] MEDS ORDERED: POLYETHYLENE GLYCOL 3350 17 GM PACKET. PO PRN (13:00)
--- NOTE | 2020-05-17 13:24 | PDOC3 ---
Discharge Summary Date of Admission: May 14, 2020 Date of Discharge: May 17, 2020 Follow-Up: Other (2 weeks) Admitting Diagnosis comment: discharge dx Assessment/Plan Impression: SYMPTOMATIC Gallstones Gallbladder calculi with findings of wall echo shadow complex. Sonographic Carney sign noted. Common bile duct is distended ///no intrahepatic biliary dilatation. hx common migrane headaches neg covid screen in ER /// pos on confirmation Dilatation of the extra hepatic biliary tree measuring up to 9 mm. Possible common hepatic duct stone measuring 5 mm. plan admit gen surgery consult npo iv fluid support iv pain control prn dvt prophylaxis, scd's lovenox 60 mg sq bid post surgery MRCP with possible CBD stone PULM CONSULT pending PCXR Ferritin D/W RN on RA HOME IF OK WITH PULM and gi 32 min pt exam, chart review d/c planning , > 50% of time spent with exam, chart review, pt care coordination d/w rn History of Present Illness History of Present Illness Identification/Chief Complaint Chief Complaint seen in ER with RUQ discomfort 34 year [id number]-gen female past medical history of migraines presents with a chief complaint of epigastric right upper quadrant abdominal pain. has had abdominal pain x2 days progressively coming worse., associated nausea without vomiting or diarrhea. , PAIN HAS BEEN WORSE AFTER MEALS states she has a migraine headache. Patient with a past medical history of migraine headache and states this pain is typical. Past Medical History Past Medical History Past Medical History Past Medical History: Migraines Additional Past Medical Histor: migraines Past Surgical History: Tubal ligation Smoking Status: Never Smoker Alcohol Use: None Drug Use: None FHX HTN Heme/Onc: No pertinent hx Psych: No pertinent hx Rheumatologic: No pertinent hx Endocrine: No pertinent hx Family History Family History: Hypertension Social History Smoke: No ALCOHOL: none Drugs: None Vitals Vitals Vital Signs Date Time Temp Pulse Resp B/P (MAP) Pulse Ox O2 Delivery O2 Flow Rate FiO2 05/17/20 08:28 17 98 Room Air 05/17/20 07:51 97.0 74 96/52 (67) 97.0 Physical Exam General: Alert, Oriented X3, Cooperative, No acute distress Heart: Regular rate, Normal S1, Normal S2 Lungs: Clear Abdomen: Normal bowel sounds, Soft, Other (TTP RUQ) Extremities: No clubbing, No cyanosis, No edema Skin: No rashes, No breakdown FINAL DIAGNOSIS Problems Medical Problems: (1) Abdominal pain Status: Acute (2) Acute cholecystitis Status: Acute Brief Hospital Course Ms. Han is a 34 old [sex] who presented with [ acute cholecystitis ] CONDITION AT DISCHARGE: Improved Discharge Medications Current Medications Ketorolac Tromethamine (Toradol 30mg Vial) 30 mg 1X ONCE IVP Last administered on 05/14/20at 21:24; Start 05/14/20 at 21:15; Stop 05/14/20 at 21:16; Status DC Ondansetron HCl (Zofran) 4 mg PRN Q8HRS PRN IV NAUSEA/VOMITING Last administered on 05/14/20at 22:43; Start 05/14/20 at 22:15; Stop 05/15/20 at 22:14; Status DC Morphine Sulfate (Morphine Sulfate) 4 mg PRN Q2HR PRN IV PAIN Last administered on 05/15/20at 21:51; Start 05/14/20 at 22:15; Stop 05/15/20 at 22:14; Status DC Piperacillin Sod/ Tazobactam Sod 4.5 gm/Sodium Chloride 100 ml @ 200 mls/hr 1X ONCE IV Last administered on 05/14/20at 22:43; Start 05/14/20 at 22:15; Stop 05/14/20 at 22:44; Status DC Sodium Chloride (Normal Saline Flush) 3 ml QSHIFT PRN IV AFTER MEDS AND BLOOD DRAWS; Start 05/15/20 at 08:30 Sodium Chloride 1,000 ml @ 100 mls/hr Q10H IV Last administered on 05/17/20at 00:36; Start 05/15/20 at 08:19 Zolpidem Tartrate (Ambien) 5 mg PRN QHS PRN PO INSOMNIA; Start 05/15/20 at 08:30 Acetaminophen (Tylenol) 650 mg PRN Q4HRS PRN PO TEMP OVER 100.4F OR MILD PAIN; Start 05/15/20 at 08:30 Al Hydroxide/Mg Hydroxide (Mylanta Plus Xs) 30 ml PRN DAILY PRN PO HEARTBURN / GAS; Start 05/15/20 at 08:30 Clonidine HCl (Catapres) 0.1 mg PRN Q6HRS PRN PO SBP>160 OR DBP>90; Start 05/15/20 at 08:30 Sodium Monofluorophosphate (Fleet Adult) 133 ml PRN DAILY PRN NV CONSTIPATION; Start 05/15/20 at 08:30 Docusate Sodium (Colace) 100 mg PRN BID PRN PO HARD STOOLS; Start 05/15/20 at 08:30 Albuterol Sulfate (Ventolin Neb Soln) 2.5 mg PRN Q4HRS PRN NEB SHORTNESS OF BREATH; Start 05/15/20 at 08:30 Guaifenesin (Robitussin) 200 mg PRN Q4HRS PRN PO COUGH; Start 05/15/20 at 08:30 Lorazepam (Ativan) 0.5 mg PRN Q4HRS PRN PO ANXIETY / AGITATION; Start 05/15/20 at 08:30 Hydromorphone HCl (Dilaudid) 0.4 mg PRN Q4HRS PRN IVP PAIN Last administered on 05/15/20at 18:37; Start 05/15/20 at 08:45 Fentanyl Citrate (Fentanyl 2ml Vial) 25 mcg PRN Q5MIN PRN IV MILD PAIN 1-3; Start 05/16/20 at 07:00; Stop 05/16/20 at 17:03; Status DC Fentanyl Citrate (Fentanyl 2ml Vial) 50 mcg PRN Q5MIN PRN IV MODERATE TO SEVERE PAIN; Start 05/16/20 at 07:00; Stop 05/16/20 at 17:03; Status DC Morphine Sulfate (Morphine Sulfate) 1 mg PRN Q10MIN PRN IV SEVERE PAIN 7-10; Start 05/16/20 at 07:00; Stop 05/16/20 at 17:03; Status DC Ringer's Solution 1,000 ml @ 30 mls/hr Q24H IV ; Start 05/16/20 at 07:00; Stop 05/16/20 at 17:03; Status DC Hydromorphone HCl (Dilaudid) 0.5 mg PRN Q10MIN PRN IV SEV PAIN, Second choice; Start 05/16/20 at 07:00; Stop 05/16/20 at 17:03; Status DC Morphine Sulfate (Morphine Sulfate) 4 mg PRN Q2HR PRN IV SEVERE PAIN 7-10 Last administered on 05/17/20at 08:28; Start 05/16/20 at 00:30 Piperacillin Sod/ Tazobactam Sod 3.375 gm/Sodium Chloride 50 ml @ 100 mls/hr Q6HRS IV Last administered on 05/17/20at 06:37; Start 05/16/20 at 11:00 Acetaminophen/ Hydrocodone Bitart (Lortab 5/325) 1 tab PRN Q4HRS PRN PO PAIN Last administered on 05/17/20at 10:50; Start 05/17/20 at 10:45 Polyethylene Glycol (miraLAX PACKET) 17 gm PRN DAILY PRN PO CONSTIPATION; Start 05/17/20 at 13:00 Famotidine (Pepcid) 20 mg QHS PO ; Start 05/17/20 at 21:00 Active Scripts Active [place] 5-325 Tablet (Acetaminophen/Hydrocodone Bitart) 1 Each Tablet 1 Tab PO PRN Q6HRS PRN Reported Acetaminophen 500 Mg Tablet 1 Tab PO PRN Q6HRS PRN 15 Days Ibuprofen 400 Mg Tablet 400 Mg PO PRN Q6HRS PRN Vital Signs Vital Signs Date Time Temp Pulse Resp B/P (MAP) Pulse Ox O2 Delivery O2 Flow Rate FiO2 05/17/20 11:50 15 100 Room Air 05/17/20 11:00 97.8 75 109/51 (70) 97.8 Labs Laboratory Tests Test 05/16/20 11:20 05/17/20 04:00 White Blood Count 3.8 x10^3/uL (4.0-11.0) 5.4 x10^3/uL (4.0-11.0) Red Blood Count 4.02 x10^6/uL (3.50-5.40) 4.00 x10^6/uL (3.50-5.40) Hemoglobin 11.8 g/dL (12.0-15.5) 11.5 g/dL (12.0-15.5) Hematocrit 34.9 % (36.0-47.0) 34.9 % (36.0-47.0) Mean Corpuscular Volume 87 fL (79-100) 87 fL (79-100) Mean Corpuscular Hemoglobin 29 pg (25-35) 29 pg (25-35) Mean Corpuscular Hemoglobin Concent 34 g/dL (31-37) 33 g/dL (31-37) Red Cell Distribution Width 15.2 % (11.5-14.5) 14.8 % (11.5-14.5) Platelet Count 193 x10^3/uL (140-400) 209 x10^3/uL (140-400) Neutrophils (%) (Auto) 64 % (31-73) 62 % (31-73) Lymphocytes (%) (Auto) 29 % (24-48) 31 % (24-48) Monocytes (%) (Auto) 7 % (0-9) 7 % (0-9) Eosinophils (%) (Auto) 0 % (0-3) 0 % (0-3) Basophils (%) (Auto) 1 % (0-3) 0 % (0-3) Neutrophils # (Auto) 2.4 x10^3/uL (1.8-7.7) 3.3 x10^3/uL (1.8-7.7) Lymphocytes # (Auto) 1.1 x10^3/uL (1.0-4.8) 1.7 x10^3/uL (1.0-4.8) Monocytes # (Auto) 0.3 x10^3/uL (0.0-1.1) 0.4 x10^3/uL (0.0-1.1) Eosinophils # (Auto) 0.0 x10^3/uL (0.0-0.7) 0.0 x10^3/uL (0.0-0.7) Basophils # (Auto) 0.0 x10^3/uL (0.0-0.2) 0.0 x10^3/uL (0.0-0.2) Sodium Level 140 mmol/L (136-145) Potassium Level 3.7 mmol/L (3.5-5.1) Chloride Level 107 mmol/L (98-107) Carbon Dioxide Level 27 mmol/L (21-32) Anion Gap 6 (6-14) Blood Urea Nitrogen 6 mg/dL (7-20) Creatinine 0.7 mg/dL (0.6-1.0) Estimated GFR (Cockcroft-Gault) 97.0 BUN/Creatinine Ratio 9 (6-20) Glucose Level 92 mg/dL (70-99) Calcium Level 8.3 mg/dL (8.5-10.1) Ferritin 15 ng/mL (8-252) Total Bilirubin 0.4 mg/dL (0.2-1.0) Aspartate Amino Transf (AST/SGOT) 25 U/L (15-37) Alanine Aminotransferase (ALT/SGPT) 38 U/L (14-59) Alkaline Phosphatase 46 U/L (46-116) Total Protein 6.6 g/dL (6.4-8.2) Albumin 3.2 g/dL (3.4-5.0) Albumin/Globulin Ratio 0.9 (1.0-1.7) Laboratory Tests Test 05/17/20 04:00 White Blood Count 5.4 x10^3/uL (4.0-11.0) Red Blood Count 4.00 x10^6/uL (3.50-5.40) Hemoglobin 11.5 g/dL (12.0-15.5) Hematocrit 34.9 % (36.0-47.0) Mean Corpuscular Volume 87 fL (79-100) Mean Corpuscular Hemoglobin 29 pg (25-35) Mean Corpuscular Hemoglobin Concent 33 g/dL (31-37) Red Cell Distribution Width 14.8 % (11.5-14.5) Platelet Count 209 x10^3/uL (140-400) Neutrophils (%) (Auto) 62 % (31-73) Lymphocytes (%) (Auto) 31 % (24-48) Monocytes (%) (Auto) 7 % (0-9) Eosinophils (%) (Auto) 0 % (0-3) Basophils (%) (Auto) 0 % (0-3) Neutrophils # (Auto) 3.3 x10^3/uL (1.8-7.7) Lymphocytes # (Auto) 1.7 x10^3/uL (1.0-4.8) Monocytes # (Auto) 0.4 x10^3/uL (0.0-1.1) Eosinophils # (Auto) 0.0 x10^3/uL (0.0-0.7) Basophils # (Auto) 0.0 x10^3/uL (0.0-0.2) Allergies Allergies Coded Allergies Type Severity Reaction Last Updated Verified promethazine Allergy Intermediate Anxiety 05/15/20 Yes sulfamethoxazole Allergy Intermediate Rash 08/04/16 Yes trimethoprim Allergy Intermediate Rash 08/04/16 Yes Disposition/Orders: D/C to Home Justicifation of Admission Dx: Justifications for Admission: Justification of Admission Dx: Yes ADY URIBE MD May 17, 2020 13:24
[2020-05-17] MEDS ORDERED: POLY17PO28 PO (13:26)
[2020-05-17] MEDS ORDERED: FAMO20TA5 PO (13:26)
[2020-05-17] MEDS ORDERED: GUAI100L12 PO (13:26)
--- NOTE | 2020-05-17 13:27 | DISCH ---
DISCHARGE INSTRUCTIONS Condition on Discharge Condition on Discharge: Stable Activity After Discharge Activity Instructions for Disc: Activity as tolerated Lifting Instructions after Dis: No heavy lifting, No pulling or pushing Driving Instructions after Dis: Do not drive Diet after Discharge Diet after Discharge: Low Fat Liquid Texture: Thin Liquid Checks after Discharge Checks after discharge: Check blood press - daily Contacting the DRPrasad after DC Call your doctor for: If your condition worsens Follow-Up Follow up with: surgery as directed Treatment/Equipment after DC Adaptive Equipment Issued: None ADY URIBE MD May 17, 2020 13:27
--- NOTE | 2020-05-17 15:00 | NUR ---
Discharge Note: CHARLIE SMALLWOOD [address] Discharge instructions and discharge home medications reviewed with Patient and a copy given. All questions have been answered and understanding verbalized. The following instructions and handouts were given: COVID discharge, famotidine, Hydrocodone, Augmentin Patient discharged to home with spouse via ambulatory
[2020-05-17] MEDS ORDERED: FAMOTIDINE 20 MG TABLET. PO SCH (21:00)
== END 2020-05-17 15:00 | disposition home or self-care (01) | DRG 444 ==
LOC: ER 19:27 → 5 NORTH 22:03 → ER 23:08 → OBSVTOIN 05-15 10:17 → 6 SOUTH 05-16 03:00
PROVIDERS: ADMIT Internal Medicine; ATTEND Internal Medicine
DX: K80.00 Calculus of gallbladder with acute cholecystitis without obstruction (principal); U07.1 COVID-19; G43.909 Migraine, unspecified, not intractable, without status migrainosus; Z82.49 Family history of ischemic heart disease and other diseases of the circulatory system; Z98.51 Tubal ligation status; Z88.2 Allergy status to sulfonamides; Z88.8 Allergy status to other drugs, medicaments and biological substances
CPT/HCPCS: 36415; 71045; 74181; 76705; 80053; 81001; 81025; 82728; 83690; 85025; 87426; 94760; 96365; 96375; 99285; G0378; G0379; J1170; J1885; J2270; J2405; J2543; J7030; U0003-CS

== ENCOUNTER 2020-08-31 20:49 | Emergency (ER) | payer MEDICAID ==
[~2020-08-31] VITALS: Ht 149.9 cm; Wt 58.6 kg
[~2020-08-31 20:49] MED LIST changes: +ACET500T68 PO; -CLIN300C8 PO; +CLIN300C9 PO; +DOCU-153 PO; +FAMO20TA5 PO; +GUAI100L12 PO; +IBUP-1027 PO; +POLY17PO28 PO
[2020-08-31] MEDS ORDERED: NALOXONE 2 MG/2 ML DISP.SYRIN. IV ONE (21:00)
[2020-08-31] MEDS ORDERED: IV NORMAL SALINE 1000ML BAG 1,000 ML IV SCH (21:00)
[2020-08-31 21:03] LABS: BILIRUBIN,URINE NEGATIVE (NEG); CLARITY,URINE CLEAR; COLOR,URINE YELLOW; NITRITE,URINE NEGATIVE (NEG); PH,URINE 6.5 (<5.0-8.0); PROTEIN,URINE NEGATIVE (NEG-TRACE); UROBILINOGEN,URINE 0.2 mg/dL (0.2 mg/dL)
[2020-08-31 21:03] LABS: BASO # 0.1 x10^3/uL (0.0-0.2); BASO % 1 % (0-3); EOS % 1 % (0-3); HEMOGLOBIN 13.9 g/dL (12.0-15.5); LYMPH % 38 % (24-48); MEAN CORPUSCULAR HEMOGLOBIN 28 pg (25-35); MEAN CORPUSCULAR HGB CONC 33 g/dL (31-37); MEAN CORPUSCULAR VOLUME 83 fL (79-100); MONO # 0.4 x10^3/uL (0.0-1.1); MONO % 5 % (0-9); NEUT # 4.3 x10^3/uL (1.8-7.7); NEUT % 55 % (31-73); PLATELET COUNT 354 x10^3/uL (140-400); RED BLOOD COUNT 5.04 x10^6/uL (3.50-5.40); RED CELL DISTRIBUTION WIDTH 15.2 % (11.5-14.5); WHITE BLOOD COUNT 7.7 x10^3/uL (4.0-11.0)
[2020-08-31 21:09] LABS: BARBITURATES NEG (NEG); BENZODIAZEPINES POS (NEG); CANNABINOIDS NEG (NEG); COCAINE POS (NEG); METHADONE NEG (NEG); OPIATES NEG (NEG); PHENCYCLIDINE NEG (NEG)
--- NOTE | 2020-08-31 21:10 | PHYS DOC ---
Past Medical History Past Medical History: No Pertinent History Additional Past Medical Histor: migraines Past Surgical History: No Surgical History Smoking Status: Never Smoker Alcohol Use: None Drug Use: None, Benzodiazepine General Adult EDM: Chief Complaint: MULTIPLE COMPLAINTS HPI: HPI: Patient is a 35 year old female arrives via private vehicle following a possible overdose. Per family patient was found with decreased spots of her last 2 hours. They report that she had taken some Xanax. Patient is unable to give history review of systems were participate in physical exam therefore they were all limited. Review of Systems: Review of Systems: Review of systems is unobtainable due to altered mental status Heart Score: Risk Factors: Risk Factors: DM, Current or recent (<one month) smoker, HTN, HLP, family history of CAD, obesity. Risk Scores: Score 0 - 3: 2.5% MACE over next 6 weeks - Discharge Home Score 4 - 6: 20.3% MACE over next 6 weeks - Admit for Clinical Observation Score 7 - 10: 72.7% MACE over next 6 weeks - Early Invasive Strategies Current Medications: Current Medications Medications (Trade) Dose Ordered Sig/Diomedes Start Time Stop Time Status Last Admin Dose Admin Naloxone HCl (NARCAN 2mg SYRINGE) 1 mg 1X ONCE 08/31/20 21:00 08/31/20 21:01 DC 08/31/20 21:01 1 MG Sodium Chloride 1,000 ml @ 1,000 mls/hr Q1H 08/31/20 21:00 08/31/20 21:59 08/31/20 21:04 1,000 MLS/HR Allergies: Allergies: Allergies Coded Allergies Type Severity Reaction Last Updated Verified promethazine Allergy Intermediate Anxiety 05/15/20 Yes sulfamethoxazole Allergy Intermediate Rash 08/04/16 Yes trimethoprim Allergy Intermediate Rash 08/04/16 Yes Physical Exam: PE: Constitutional: Well developed, well nourished, lethargic, minimally responsive HENT: Normocephalic, atraumatic, bilateral external ears normal, oropharynx moist, no oral exudates, nose normal. [] Eyes: Pupils 1 to 2 mm and sluggish conjunctiva normal, no discharge. [] Neck: Normal range of motion, no tenderness, supple, no stridor. [] Cardiovascular:Heart rate regular rhythm, peripheral pulse intact cap refill is brisk Lungs & Thorax: Bilateral breath sounds clear, no respiratory distress Abdomen: soft, no tenderness, no masses, no pulsatile masses. [] Skin: Warm, dry, no erythema, no rash. [] Back: No tenderness, no CVA tenderness. [] Extremities: No tenderness, no cyanosis, no clubbing, ROM intact, no edema. [] Neurologic: Drowsy and minimally responsive moves all extremities Psychologic: Unable to assess Current Patient Data: Labs: Laboratory Tests Test 08/31/20 20:54 White Blood Count 7.7 x10^3/uL (4.0-11.0) Red Blood Count 5.04 x10^6/uL (3.50-5.40) Hemoglobin 13.9 g/dL (12.0-15.5) Hematocrit 42.0 % (36.0-47.0) Mean Corpuscular Volume 83 fL (79-100) Mean Corpuscular Hemoglobin 28 pg (25-35) Mean Corpuscular Hemoglobin Concent 33 g/dL (31-37) Red Cell Distribution Width 15.2 % (11.5-14.5) H Platelet Count 354 x10^3/uL (140-400) Neutrophils (%) (Auto) 55 % (31-73) Lymphocytes (%) (Auto) 38 % (24-48) Monocytes (%) (Auto) 5 % (0-9) Eosinophils (%) (Auto) 1 % (0-3) Basophils (%) (Auto) 1 % (0-3) Neutrophils # (Auto) 4.3 x10^3/uL (1.8-7.7) Lymphocytes # (Auto) 3.0 x10^3/uL (1.0-4.8) Monocytes # (Auto) 0.4 x10^3/uL (0.0-1.1) Eosinophils # (Auto) 0.0 x10^3/uL (0.0-0.7) Basophils # (Auto) 0.1 x10^3/uL (0.0-0.2) Laboratory Tests 08/31/20 20:54 EKG: EKG: [] EKG interpreted by me normal sinus rhythm rate 92 right axis deviation right bundle branch block, nonspecific ST changes Radiology/Procedures: Radiology/Procedures: [] Course & Med Decision Making: Course & Med Decision Making Pertinent Labs and Imaging studies reviewed. (See chart for details) [] Patient was some sonorous respiration was given 1 mg of Narcan at appro ximately 2100 and woke up. Patient states she just took Xanax. Patient reassessed at 10:20 PM and is sleepy but easily arousable. Patient denies any suicidal ideation just took the pills to get high. Patient reassessed at 11:20 PM patient sitting up drinking. Patient will be given a road trip and if she is able to ambulate without much assistance she will be stable for discharge. Rika Disclaimer: Rika Disclaimer: This electronic medical record was generated, in whole or in part, using a voice recognition dictation system. Departure Departure Impression: Primary Impression: Benzodiazepine overdose Disposition: 01 DC HOME SELF CARE/HOMELESS Condition: STABLE Referrals: NO PCP (PCP) [facility] [address] [place] [address] [facility] [address] [place] [address] [facility] [address] Patient Instructions: Overdose, Accidental Additional Instructions: EMERGENCY DEPARTMENT GENERAL DISCHARGE INSTRUCTIONS THANK YOU for coming to [facility] Emergency Department (ED) today and trusting us with your care. We trust that you had a positive experience in our Emergency Department. If you wish to speak to the department Management you can contact the emergency department at . YOUR FOLLOW UP INSTRUCTIONS ARE FOLLOWS: Do you have a private doctor? If you do not have a private doctor, please ask for a resource list of physicians or clinics that may be able to assist you with follow up care. The Emergency Physician has interpreted your x-rays. The X-ray specialist will also review them. If there is a change in the findings you will be notified in 48 hours when at all possible. A lab test or lab culture may have been done, your results will be reviewed and you will be notified if you need a change in treatment. ADDITIONAL INSTRUCTIONS AND INFORMATION Your care today has been supervised by a physician who is specially trained in emergency care. Many problems require more than one evaluation for a complete diagnosis and treatment. We recommend that you schedule your follow up appointment as recommended to ensure complete treatment of your illness or injury. If you are unable to obtain follow up care and continue to have a problem, or if your condition worsens we recommend that you return to the ED. We are not able to safely determine your condition over the phone nor are we able to give sound medical advice over the phone. For these safety reasons, if you call for medical advice we will ask you to come to the ED for further evaluation If you have any questions regarding these discharge instructions please call the ED at . SAFETY INFORMATION In the interest of safety, wellness, and injury prevention; we encourage you to wear your seatbelt, if you smoke; quit smoking, and we encourage your family to use protective helmet for bicycling and other sporting events that present an increased risk for head injury. IF YOUR SYMPTOMS WORSEN OR NEW SYMPTOMS DEVELOP, OR YOU HAVE CONCERNS ABOUT YOUR CONDITION; OR IF YOUR CONDITION WORSENS WHILE YOU ARE WAITING FOR YOUR FOLLOW UP NICHOLE OINTMENT; EITHER CONTACT YOUR PRIMARY CARE DOCTOR, THE PHYSICIAN WHOSE NAME AND NUMBER YOU WERE Yvonne MENDES, OR RETURN TO THE ED IMMEDIATELY. DALLAS REDDING MD Aug 31, 2020 21:10
[2020-08-31 21:11] LABS: AMPHETAMINE/METHAMPHETAMINE NEG (NEG)
[2020-08-31 21:14] LABS: CALCIUM 9.1 mg/dL (8.5-10.1); CREATININE 0.9 mg/dL (0.6-1.0); GFR 72.1; POTASSIUM 3.6 mmol/L (3.5-5.1)
[2020-08-31 21:17] LABS: ACETAMIN < 2.0 mcg/ml (10-30); ETHANOL < 10 mg/dL (0-10); SALIC < 2.8 mg/dL (2.8-20.0)
[2020-08-31 21:19] LABS: ALBUMIN 4.1 g/dL (3.4-5.0); ALBUMIN/GLOBULIN RATIO 0.9 (1.0-1.7); MAGNESIUM 1.9 mg/dL (1.8-2.4); TOTAL BILIRUBIN 0.1 mg/dL (0.2-1.0); TOTAL PROTEIN 8.6 g/dL (6.4-8.2)
[2020-08-31 21:19] LABS: AMORPHOUS SEDIMENT,UR PRESENT /HPF; BACTERIA,URINE 0 /HPF (0-FEW); RBC,URINE 0 /HPF (0-2); WBC,URINE RARE /HPF (0-4)
[2020-08-31 21:29] LABS: PREG TEST PT QUAL NEGATIVE (NEG)
[2020-08-31 23:20] VITALS: BP 107/73
--- NOTE | 2020-09-03 12:19 | EKG ---
[facility] [address] [place] [address] Test Date: 2020-08-31 Test Time: 21:22:20 Pat Name: CHARLIE SMALLWOOD Department: Room: Gender: F Carton Catcher: : [id number] Requested By: DALLAS REDDING Order Number: [id number] Reading MD: Measurements Intervals [place] Rate: 92 P: 116 NE: 166 QRS: 104 QRSD: 84 T: 120 QT: 356 QTc: 445 Interpretive Statements SINUS RHYTHM RIGHTWARD AXIS INCOMPLETE RIGHT BUNDLE BRANCH BLOCK QRS(T) CONTOUR ABNORMALITY CONSISTENT WITH HIGH LATERAL INFARCT AGE UNDETERMINED ABNORMAL ECG RI6.02 No previous ECG available for comparison
== END 2020-08-31 23:40 | disposition home or self-care (01) ==
LOC: ER 20:49
DX: T42.4X1A Poisoning by benzodiazepines, accidental (unintentional), initial encounter (principal); R41.82 Altered mental status, unspecified; G43.909 Migraine, unspecified, not intractable, without status migrainosus; Z88.1 Allergy status to other antibiotic agents; Z88.2 Allergy status to sulfonamides; Z88.8 Allergy status to other drugs, medicaments and biological substances; Y92.89 Other specified places as the place of occurrence of the external cause
CPT/HCPCS: 36415; 80053; 80307; 80329; 81001; 83735; 84703; 85025; 96361; 96374; 99285; G0480; J2310; J7030; 93005